=== PATIENT | male | born 1970 | race Caucasian/White ===

== ENCOUNTER 2018-02-25 13:00 | Outpatient (RCR) | payer OTHER, SELFPAY ==
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
--- NOTE | 2018-02-12 11:45 | PTIDS_ITS ---
DATE: 02/12/18 REFERRING PROVIDER: Stephany Kline NP DIAGNOSIS: Shoulder Pain on Left and Weight loss ___X__ Patient did not return for a follow up appointment(s). Patient called to cancel remaining appointment(s). Reason: Return to physician recommended. Patient had achieved an improvement in condition up to their prior level of function. Patient was instructed in a customized home exercise program to continue independently at home. The patient was given the option to call and schedule an appointment any time within a 3-week period if they experience a return of symptoms. Patient did not schedule follow up within this time frame. COMMENTS: Patient started at job and this limited his time for therapy ___X__ Discharge from PT at this time. ___X_ Medicare: Unable to assign G-Codes due to the lack of a formal follow up visit. Patient did not schedule further visits after their last attended appointment and therefore a final assessment could not be performed.
--- NOTE | 2018-02-25 13:28 | PTTR_ITS ---
DATE: 02/25/18 SUBJECTIVE: I am feeling a little bit better. OBJECTIVE: Manual therapy: ([id number]). 267.4#, BMI 44.5, Body fat 35.3%, Muscle mass 29.3%, and Visceral fat 27. Measurements taken by [employer] body analyzer. Patient then placed in supine where he was mobilized with gentle oscillatory lateral distraction and scapular jiggles to decrease muscle tension. He was guided through light stretching of the pectorals and biceps with low load long duration holds. Patient then mobilized through the plane of abduction with use of posterior lateral glide of the humeral head. Patient mobilized through end of range flexion, ER, IR, and abduction with good tolerance. Direct treatment time: 25 minutes of direct patient care.
== END 2018-03-01 23:59 | disposition home or self-care (01) ==
LOC: PT 13:00
PROVIDERS: PCP Nurse Practitioner Family; Referring Provider Nurse Practitioner Adult Health; Visit Provider Nurse Practitioner Adult Health
DX: M19.012 Primary osteoarthritis, left shoulder (principal); M75.42 Impingement syndrome of left shoulder; M89.8X1 Other specified disorders of bone, shoulder
CPT/HCPCS: 97140; 97161

== ENCOUNTER 2018-07-16 19:06 | Emergency (ER) | payer OTHER, MEDICAID, SELFPAY ==
[2018-07-16 19:09] VITALS: BP 140/66; PULSE 95; RESP 20; TEMP 37.4; O2SAT 97
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
[2018-07-16 19:23] VITALS: BP 140/66; PULSE 95; RESP 20; TEMP 37.4; O2SAT 97
== END 2018-07-16 19:20 | disposition home or self-care (01) ==
LOC: ER 19:39
PROVIDERS: Emergency Provider Emergency Medicine; PCP Nurse Practitioner Family
DX: M25.532 Pain in left wrist (principal)
CPT/HCPCS: 99282; L3908

== ENCOUNTER 2018-12-02 14:42 | Outpatient (CLI) | payer OTHER, MEDICAID, SELFPAY ==
--- NOTE | 2018-12-02 14:21 | DI.RAD_ITS ---
SYMPTOMS/DIAGNOSIS: SLAMMED THUMB ON DOOR, INJURY, S69.91XA, ? FX RIGHT THUMB: Three views were obtained. No acute fracture seen. Small osseous bodies are seen associated with the DIP joint, which may be on the basis of old trauma or degenerative change.
== END 2018-12-02 15:02 ==
PROVIDERS: PCP Nurse Practitioner Family; Visit Provider Family Medicine
DX: S69.91XA Unspecified injury of right wrist, hand and finger(s), initial encounter (principal); M21.941 Unspecified acquired deformity of hand, right hand
CPT/HCPCS: 73140

== ENCOUNTER → 2018-12-05 08:54 | Outpatient (BNVA) | payer OTHER, MEDICAID, SELFPAY | PROVIDERS: PCP Nurse Practitioner Family; Referring Provider Nurse Practitioner Family; Visit Provider Orthopaedic Surgery | DX: S60.111A Contusion of right thumb with damage to nail, initial encounter (principal); W23.1XXA Caught, crushed, jammed, or pinched between stationary objects, initial encounter; I10 Essential (primary) hypertension; E11.9 Type 2 diabetes mellitus without complications | CPT/HCPCS: 99204; 99213 ==

== ENCOUNTER 2019-01-19 09:26 | Outpatient (CLI) | payer OTHER, MEDICAID, SELFPAY ==
[2019-01-19 09:49] LABS: Abs Immature Grans 0.02 k/cumm (0.0-0.09); Absolute Basophil Count 0.04 k/cumm (0.0-0.2); Absolute Eosinophil Count 0.24 k/cumm (0.0-0.7); Absolute Lymphocyte Count 1.18 k/cumm (1.2-3.4); Absolute Monocyte Count 0.58 k/cumm (0.11-0.7); Absolute Neutrophil Count 3.77 k/cumm (1.2-6.7); Basophils % 0.7; Eosinophils % 4.1; HGB 14.9 g/dL (13.5-17.5); Immature Grans % 0.3; Lymphocytes % 20.2; Mean Corp. HGB Concentration 35.5 g/dL (32.0-36.0); Mean Corpuscular Hemoglobin 31.2 pg (27.0-33.0); Mean Corpuscular Volume 88.1 fL (80-95); Mean Platelet Volume 10.8 fL (8.0-11.0); Monocytes % 9.9; Neutrophils % 64.8; Platelet Count 133 x1000/uL (130-400); RBC 4.77 m/cumm (4.50-6.00); RBC Distribution Width 13.4 % (11.8-14.1); White Blood Cell Count 5.83 k/cumm (4.4-10.8)
[2019-01-19 10:40] LABS: ALT 35 U/L (12-78); AST 21 U/L (15-37); Albumin 3.9 g/dL (3.4-5.0); Alkaline Phosphatase 85 U/L (46-116); Anion Gap 9.7 mmol/L (3-11); BUN 10 mg/dL (7-18); Bilirubin, Total 0.4 mg/dL (0.2-1.0); CO2 28.3 mmol/L (21.0-32.0); CREATININE 0.84 mg/dL (0.70-1.30); Calcium 8.9 mg/dL (8.5-10.1); Calculated LDL 85 mg/dL; Chloride 103 mmol/L (98-107); Cholesterol 160 mg/dL (50-200); Glucose 114 mg/dL (70-100); HDL Cholesterol 38 mg/dL (40-60); Potassium 4.1 mmol/L (3.5-5.1); Sodium 141 mmol/L (136-145); Total Protein 7.1 g/dL (6.4-8.2); Triglyceride 188 mg/dL (30-150)
[2019-01-20 06:38] LABS: Hemoglobin A1C 5.7 % (4.5-6.2)
[2019-01-20 08:03] LABS: COMMENT (LAB VIEW ONLY) 206.51 mg/dL
== END 2019-01-19 09:46 ==
PROVIDERS: PCP Nurse Practitioner Family; Visit Provider Nurse Practitioner Family
DX: E11.8 Type 2 diabetes mellitus with unspecified complications (principal); I10 Essential (primary) hypertension; Z51.81 Encounter for therapeutic drug level monitoring; E78.5 Hyperlipidemia, unspecified
CPT/HCPCS: 36415; 80053; 80061; 83721; 82043; 82570; 83036; 85025

== ENCOUNTER 2019-03-20 15:45 | Outpatient (CLI) | payer OTHER, MEDICAID, SELFPAY ==
[2019-03-24 10:43] LABS: PSA, Screening 0.2 ng/ml (0-3.5)
== END 2019-03-20 16:05 ==
LOC: LBN 15:49 → LBO 15:58
PROVIDERS: PCP Nurse Practitioner Family; Visit Provider Nurse Practitioner Family
DX: N40.0 Benign prostatic hyperplasia without lower urinary tract symptoms (principal); R35.0 Frequency of micturition; Z12.5 Encounter for screening for malignant neoplasm of prostate
CPT/HCPCS: 36415; 84153

== ENCOUNTER 2019-11-01 16:53 | Emergency (ER) | payer OTHER, MEDICAID, SELFPAY ==
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
[2019-11-01 16:55] VITALS: BP 138/74; PULSE 86; RESP 16; TEMP 36.7; O2SAT 97
[2019-11-01] MEDS: Lidocaine 1% Multi-Dose 50 ML VIAL (17:12)
[2019-11-01] MEDS: Ibuprofen 600 MG TAB PO (17:53)
== END 2019-11-01 17:55 | disposition home or self-care (01) ==
PROVIDERS: Emergency Provider Physician Assistant; PCP Nurse Practitioner Family
DX: S61.210A Laceration without foreign body of right index finger without damage to nail, initial encounter (principal); W26.8XXA Contact with other sharp object(s), not elsewhere classified, initial encounter; E11.9 Type 2 diabetes mellitus without complications; Z79.84 Long term (current) use of oral hypoglycemic drugs; I10 Essential (primary) hypertension
CPT/HCPCS: 12001

== ENCOUNTER 2019-11-17 13:17 | Outpatient (REF) | payer OTHER, MEDICAID, SELFPAY ==
[2019-11-18 10:22] LABS: Abs Immature Grans 0.02 k/cumm (0.0-0.09); Absolute Basophil Count 0.03 k/cumm (0.0-0.2); Absolute Monocyte Count 0.57 k/cumm (0.11-0.7); Basophils % 0.5; Eosinophils % 3.6; HCT 42.4 % (40.0-50.0); HGB 14.5 g/dL (13.5-17.5); Immature Grans % 0.4 %; Lymphocytes % 21.7; Mean Corp. HGB Concentration 34.2 g/dL (32.0-36.0); Mean Corpuscular Hemoglobin 30.5 pg (27.0-33.0); Mean Corpuscular Volume 89.1 fL (80-95); Mean Platelet Volume 12.5 fL (8.0-11.0); Monocytes % 10.3; Neutrophils % 63.5; Platelet Count 116 x1000/uL (130-400); RBC 4.76 m/cumm (4.50-6.00); RBC Distribution Width 13.2 % (11.8-14.1); White Blood Cell Count 5.52 k/cumm (4.4-10.8)
[2019-11-18 10:39] LABS: ALT 33 U/L (16-63); AST 19 U/L (15-37); Albumin 3.9 g/dL (3.4-5.0); Alkaline Phosphatase 112 U/L (46-116); BUN 11 mg/dL (7-18); Bilirubin, Total 0.2 mg/dL (0.2-1.0); Calcium 8.5 mg/dL (8.5-10.1); Calculated LDL 79 mg/dL (<100); Chloride 102 mmol/L (98-107); Cholesterol 166 mg/dL (<200); Glucose 123 mg/dL (74-106); HDL Cholesterol 33 mg/dL (40-60); Potassium 3.9 mmol/L (3.5-5.1); Sodium 137 mmol/L (136-145)
[2019-11-18 10:40] LABS: Triglyceride 272 mg/dL (<150)
[2019-11-18 10:52] LABS: COMMENT (LAB VIEW ONLY) 65.93 mg/dL; Microalb ug/mg Crea 21.7 ug/mg Cr
== END 2019-11-17 13:37 ==
LOC: LBN 13:17
PROVIDERS: PCP Nurse Practitioner Family; Visit Provider Nurse Practitioner Family
DX: E11.9 Type 2 diabetes mellitus without complications (principal); E78.5 Hyperlipidemia, unspecified
CPT/HCPCS: 80053; 80061; 82043; 82570; 85025

== ENCOUNTER 2020-09-22 10:39 | Outpatient (CLI) | payer MEDICARE, MEDICAID, SELFPAY ==
--- NOTE | 2020-09-22 09:30 | DI.RAD_ITS ---
EXAM: XR KNEE LT 3V AP,LAT,ANIKA CLINICAL HISTORY: LT KNEE PAIN, M25.562, STIFFNESS, M25.662, DECREASED ROM LT KNEE. TECHNIQUE: 2D digital imaging was performed. COMPARISON: No exams were available for comparison FINDINGS: There is no evidence of fracture nor prominent no joint effusion. No degenerative change narrowing. No osteophytes. Bone density is normal. No osseous lesions. No obvious osteochondral defects. IMPRESSION: No significant radiograph findings on these three views of the left knee. DATA REPOSITORY: RADIATION DOSE DELIVERED:
--- NOTE | 2020-09-22 09:30 | DI.RAD_ITS ---
EXAM: XR HIP LT COMPLETE AP PELVIS CLINICAL HISTORY: DECREASED ROM LT HIP, STIFFNESS, M25.562, LT GROIN PAIN, CHRONIC PAIN,. TECHNIQUE: 2D digital imaging was performed. COMPARISON: CR LUMBAR SPINE COMPLETE from 07/30/2015 FINDINGS: There is no evidence of pelvic nor hip fracture. However, there are degenerative changes in the hips . There is advanced disc space narrowing superior aspect of the left hip. Also marginal osteophytes in the left femoral head. In the opposite-right hip there are degenerative subarticular cysts in the superior acetabulum noted. Less joint space narrowing. No ominous osseous lesions. Sacroiliac joints appear unremarkable as does the symphysis pubis. IMPRESSION: Degenerative changes in the hips and as described above, more prominent in the left hip. DATA REPOSITORY: RADIATION DOSE DELIVERED:
== END 2020-09-22 10:59 ==
PROVIDERS: PCP Nurse Practitioner Family; Visit Provider Nurse Practitioner Adult Health
DX: M25.562 Pain in left knee (principal); M25.662 Stiffness of left knee, not elsewhere classified; M25.552 Pain in left hip; M25.652 Stiffness of left hip, not elsewhere classified; G89.29 Other chronic pain; M16.12 Unilateral primary osteoarthritis, left hip
CPT/HCPCS: 73562; 73502

== ENCOUNTER 2020-11-02 03:02 | Outpatient (CLI) | payer OTHER, MEDICAID, SELFPAY ==
--- NOTE | 2020-11-02 13:00 | NS.NUTBLAN_ITS ---
ASSESSMENT: 50 y/o male w/ hx DM2 and obesity. He presents with referral for management of both issues. On metformin 1000mg BID. Hx desirable weight loss since 2017 ( -134 lbs.) using principles of Keto diet under the guidance of PharmSerge Pruett and primary care provider. Shelly he weighs 283.2lbs. He was walking regularly for exercise but stated that he is going to be scheduling hip surgery soon and has stopped walking r/t pain. Random fingerstick at this encounter revealed 139 mg/dl with diet recall of CHO rich breakfast of oatmeal, honey and PB. He is endentulous and prefers softer foods. He had no lunch prior to this encounter and stated that he normally does not eat lurch. He and his vcook at home. Drinks mostly black coffee with an occasional Pepsi. Stated that he is computer illiterate. He reports 9 months of consecutive sobriety with AA and support of a sponsor in the program. Works at [employer] and stated that his job is quite physical with walking and lifting. He had a recent visit with PCP. Recent labs unavailable.He is a smoker and is going to look into cessation in the coming months. INTERVENTION: Recommended he contact PCP for Rx of new glucometer and test strips. Recommended he record all meals, snacks and beverages for 7 days and test FBG and 1 alternating meal ~ 2hrs postprandial X 1 week. Reviewed CHO daily intake and provided two diabetic recipe books for him to use at home to help with CHO intake and food choices. set a weight loss goal of 7% ( 20lbs) and recommended he eat only recipes from the literature provided and keep CHO intake to <30g per meal. Provided food record forms and BG record forms. reiterated his past success at weight loss goals .Explained relationship b/t smoking and DM complications. MONITOR/EVAL: Darryl will return in 30 days for re-weigh and evaluation. We will then review BG numbers and look for trends based on food choices. He has a good working knowledge of what to do to lose weight and control BG with diet and a successful track record. He seems motivated to continue to focus on new goals moving forward. Time Spent Face to Face: 3 units/45 minutes
== END 2020-11-02 03:03 | disposition home or self-care (01) ==
LOC: DS 03:02
PROVIDERS: PCP Nurse Practitioner Family; Visit Provider Dietitian, Registered
DX: E11.9 Type 2 diabetes mellitus without complications (principal); E66.9 Obesity, unspecified; Z71.3 Dietary counseling and surveillance; Z79.84 Long term (current) use of oral hypoglycemic drugs
CPT/HCPCS: 97802

== ENCOUNTER 2020-12-17 10:17 | Outpatient (CLI) | payer OTHER, MEDICAID, SELFPAY ==
--- NOTE | 2020-12-17 10:15 | RT.EKG_ITS ---
APPROVED REPORT Exam: Resting ECG Reason for Exam: pre-op exam Patient Location: O HR:67 bpm ECG Measurements Heart Rate 67 AXIS IA 179 P -24 QRSd 102 QRS 7 QT 380 T 30 QTc 401 Conclusion Sinus rhythm...normal P axis, V-rate 60- 99 Normal Electrocardiogram
== END 2020-12-17 10:18 | disposition home or self-care (01) ==
LOC: DI.KIM 10:19
PROVIDERS: PCP Nurse Practitioner Family; Visit Provider Nurse Practitioner Family
DX: Z01.810 Encounter for preprocedural cardiovascular examination (principal)
CPT/HCPCS: 93010

== ENCOUNTER 2021-05-05 03:06 | Outpatient (CLI) | payer OTHER, MEDICAID, SELFPAY ==
--- NOTE | 2021-05-05 13:00 | NS.NUTBLAN_ITS ---
Assessment: Darryl returns for nutritional counseling for weight management and medical nutrition therapy for diabetes. He reports that he has met his action plans from our last visit by 50%. He has cut down on his cereal. He is eating very low calorie, low carbohydrate bread, and he has changed his snacks to mostly cottage cheese and fruit. He does have 2 cups of pasta or rice at dinner and he has 24 oz. of 2% milk with strawberry syrup in it. Darryl reports that he has not started increasing his physical activity and he has not yet joined a gym but plans to look at one that is covered by his health insurance. Today he is 316.2 lbs which is 0.7 lbs less than three weeks ago. (He is 63) Nutrition Diagnosis: Class 3 obesity related to excess energy intake and physical inactivity as evidenced by BMI of 53 kg/m2. Intervention: Acknowledged his progress with some of his dietary changes. Suggested that he eliminate the strawberry syrup from his milk. He agreed to trial that plan. Also suggested that he cut his intake of starches in half. Encouraged him to start with any increase in movement such as 15 minutes three days per week. He stated he is motivated. At our last visit, Darryl asked for some keto recipes. I provided him with many. He reported that he was looking forward to trying them. Monitoring and Evaluation: Will continue to monitor weight and behavior changes. Will evaluate his progress with his action plans and will help Darryl adjust them accordingly. Darryl will return for follow up next month. Thank you for continuing to allow me to participate in the care of your patient.
== END 2021-05-05 03:07 | disposition home or self-care (01) ==
PROVIDERS: PCP Nurse Practitioner Family; Visit Provider Dietitian, Registered
DX: E11.9 Type 2 diabetes mellitus without complications (principal); E66.01 Morbid (severe) obesity due to excess calories; Z71.3 Dietary counseling and surveillance
CPT/HCPCS: 97803

== ENCOUNTER 2021-05-20 13:15 | Inpatient (IN) | payer OTHER, MEDICAID, SELFPAY ==
[2021-05-20] VITALS (55 sets, daily range): BP systolic 103–165; BP diastolic 65–84; PULSE 77–98; RESP 13–36; TEMP 36–37.3; O2SAT 92–100
--- NOTE | 2021-05-20 13:15 | RT.EKG_ITS ---
APPROVED REPORT Exam: Resting ECG Reason for Exam: CARY, ANNETTA Patient Location: E HR:79 bpm ECG Measurements Heart Rate 79 AXIS IN 164 P 13 QRSd 100 QRS -17 QT 377 T 23 QTc 431 Conclusion Sinus rhythm...normal P axis, V-rate 60- 99
[2021-05-20 13:40] LABS: Source Nasal/Nares
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
[2021-05-20 13:47] LABS: Abs Immature Grans 0.04 10^3/uL (0.0-0.06); Absolute Basophil Count 0.06 10^3/uL (0.0-0.2); Absolute Eosinophil Count 0.12 10^3/uL (0.0-0.7); Absolute Lymphocyte Count 0.88 10^3/uL (1.2-3.4); Absolute Monocyte Count 0.51 10^3/uL (0.1-0.8); Basophils % 0.7; Eosinophils % 1.4; HGB 15.5 g/dL (13.5-17.5); Immature Grans % 0.5; Lymphocytes % 10.6; MCH 29.1 pg (27.0-33.0); MCHC 33.7 % (32.0-36.0); MCV 86.5 fL (80-95); MPV 11.1 fL (8.0-11.0); Monocytes % 6.1; Neutrophils % 80.7; Nucleated RBC 0 %; Platelet Count 160 10^3/uL (130-400); RBC 5.32 10^6/uL (4.36-5.78); RDW 13.6 % (11.8-14.1); RDW-SD 42.8 fL; WBC 8.31 10^3/uL (4.4-10.8)
[2021-05-20] MEDS: Aspirin 81 MG CHEW 243 MG CH (13:54)
[2021-05-20 14:32] LABS: COVID-19 PCR Negative (Negative)
[2021-05-20 14:39] LABS: ALT 73 U/L (16-63); AST 69 U/L (15-37); Albumin 3.2 g/dL (3.4-5.0); Alkaline Phosphatase 203 U/L (46-116); Anion Gap 9.6 mmol/L (3-11); BUN 7 mg/dL (7-18); Bilirubin, Total 0.5 mg/dL (0.2-1.0); CO2 28.4 mmol/L (21.0-32.0); CREATININE 0.8 mg/dL (0.70-1.30); Calcium 9.1 mg/dL (8.5-10.1); Chloride 96 mmol/L (98-107); Glucose 305 mg/dL (74-106); Magnesium 1.5 mg/dL (1.8-2.4); Potassium 4.8 mmol/L (3.5-5.1); Sodium 134 mmol/L (136-145); Total Protein 7.6 g/dL (6.4-8.2)
[2021-05-20 14:40] LABS: Troponin I < 0.05 ng/mL (<0.06)
[2021-05-20 15:10] LABS: Lipase 70 U/L (73-393)
--- NOTE | 2021-05-20 15:30 | DI.CT_ITS ---
Exam(s) CT CHEST PE ABD PELVIS W EXAM: CT CHEST PE ABD PELVIS W CLINICAL HISTORY: Chest Pain, SOB, Rule out PE. TECHNIQUE: Imaging Protocol: Axial CT angiography was performed with multi-slice acquisition and mu lti-planar and/or 3D reconstructions. CONTRAST MATERIAL: Intravenous: Omnipaque 350 Contrast volume:100 ml COMPARISON: No exams were available for comparison FINDINGS: CHEST: Exam is limited by patient body habitus. The pulmonary arteries are suboptimally opacified. Pulmonary Arteries: No central evidence of filling defect to suggest pulmonary emboli. Distal emboli not excluded. Tracheobronchial tree: Patent where visualized. Mediastinum and Manuela: No dominant adenopathy or fluid collection. Pulmonary parenchyma: Expiratory changes. Question of right perihilar infiltrate. Pleura: No effusion or pneumothorax. Heart: The heart is not dilated. coronary artery calcifications are seen. Aorta: Thoracic aorta non-dilated. Bones: Degenerative disc changes. Tubes, Catheters, and Lines: ABDOMEN: Liver: Marked nodularity in decreased attenuation as well as enlargement, consistent with cirrhosis. There is a mass probably superior to the gallbladder measuring roughly 3.8 x 4.4 by 7 cm. The bord ers are ill-defined. Portal vein: Partially occlusive thrombus in the right portal vein. Left portal vein and main mariola l vein free of thrombus. Superior Mesenteric, and Splenic Veins: Unremarkable. Gallbladder and Biliary Tract: No radiodense calculus or dilation. Pancreas: Normal density, no abnormal calcifications or inflammatory process. Spleen: Normal. Adrenals: No masses seen. Kidneys: Normal size, contour and axis. No radiodense stones or obstructive uropathy. No masses seen. Abdominal Aorta: Abdominal portion non-dilated. Bowel: No obstruction or bowel wall thickening. Mild sigmoid diverticulosis. No evidence of diverti culitis. Appendix is unremarkable. Peritoneal Cavity: No ascites, collection or mesenteric inflammatory response. Lymph Nodes: 2.5 centimeter lymph node in the mariola hepatis. Bones: Degenerative changes in the spine. Soft Tissues: Severe rectus diastasis and hernia of the midline abdominal wall above the level of the umbilicus. Loops of small bowel lie directly adjacent to this but are not not definitely extending through the defect. PELVIS: Bladder: Symmetric distention, no gross wall thickening. Reproductive Organs: Unremarkable as visualized. Lymph Nodes: Within normal limits. Bones: Left hip prosthesis. IMPRESSION: 1. Suboptimal opacification of the pulmonary arteries. No evidence of central pulmonary embolism. 2. Markedly cirrhotic liver. 7 centimeter maximal dimension liver mass. Partially occluding thrombu s in the right hepatic vein, likely tumor thrombus. 3. Right perihilar opacity could represent infiltrate however given the liver mass metastatic lesion is not excluded. 4. The findings were called to [facility] of the emergency department. RADIATION DOSE DELIVERED: 2,637.96mGy.cm Total DLP DATA REPOSITORY: All CT scans at this facility are submitted to the National Radiology Data Registry (NRDR) Dose Index Registry (DIR) with the [employer] (ACR). RADIATION OPTIMIZATION: All CT scans at this facility use at least one of these dose optimization te chniques: automated exposure control; mA and/or kV adjustment per patient size (includes targeted exa ms where dose is matched to clinical indication); or iterative reconstruction.
[2021-05-20] MEDS: Omnipaque 350 MG/ML 100 ML BTL IJ (15:45)
[2021-05-20] MEDS: Normal Saline - Diluent 50 ML VIAL IV (15:45)
[2021-05-20] MEDS: Normal Saline Flush 10 ML SYR IVP ×2 (15:46→21:51)
[2021-05-20] MEDS: Ondansetron 4 MG/2 ML VIAL IVP (16:33)
[2021-05-20 16:38] LABS: INR 1.1 (0.9-1.1); PTT Activated 24.5 sec (21.0-27.5); Prothrombin Time 11.2 sec (9.3-11.0)
--- NOTE | 2021-05-20 17:00 | RT.EKG_ITS ---
APPROVED REPORT Exam: Resting ECG Reason for Exam: SOB Patient Location: E HR:89 bpm ECG Measurements Heart Rate 89 AXIS LA 156 P 25 QRSd 95 QRS 6 QT 360 T 4 QTc 439 Conclusion Sinus rhythm...normal P axis, V-rate 60- 99
[2021-05-20 17:43] LABS: Troponin I < 0.05 ng/mL (<0.06)
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
--- NOTE | 2021-05-20 19:07 | W.ED.FU ---
Date of service: 05/20/21 Time of Service: 19:08 Follow Up Plan: 1904: Call received from Hem/Onc fellow, Dr. Weiner she recommends a dedicated liver MRI, if negative then patient would need a liver biopsy via IR. If the MRI is positive there is no need for a biopsy. She also recommends adding onto the labs hepatitis B, hepatitis C and alpha-fetoprotein she also confirms that Lovenox or Heparin is adequate for anticoagulation at this time. Will order the requested labs and discuss with hospitalist.
[2021-05-20] MEDS: MAGNESIUM SULFATE 2 GM/50 ML BAG IVPB (21:46)
[2021-05-20] MEDS: MORPHine 4 MG/ML SYR IVP (21:47)
[2021-05-20] MEDS: Normal Saline 500 ML 30 ML IV (21:47)
[2021-05-20] MEDS: Atorvastatin 40 MG TAB PO (21:48)
[2021-05-20] MEDS: rOPINIRole 0.5 MG TAB 1.5 MG PO (21:48)
[2021-05-20] MEDS: Insulin Glargine 300 UNITS/3 ML PEN 20 UNITS SC (22:15)
[2021-05-20] MEDS: Diclofenac 1% Gel 100 GM TUBE TP (22:28)
[2021-05-21] VITALS (9 sets, daily range): BP systolic 126–139; BP diastolic 81–89; PULSE 69–92; RESP 18–20; TEMP 36.2–37.1; O2SAT 93–98
[2021-05-21] MEDS: MORPHine 4 MG/ML SYR IVP ×6 (07:40→20:23)
[2021-05-21] MEDS: Normal Saline Flush 10 ML SYR IVP ×6 (07:46→20:27)
[2021-05-21] MEDS: Tamsulosin 0.4 MG CAPCR 0.8 MG PO (07:47)
[2021-05-21] MEDS: Gabapentin 600 MG TAB 1200 MG PO ×2 (07:47→20:26)
[2021-05-21] MEDS: Oxybutynin 5 MG TAB PO ×2 (07:47→20:26)
[2021-05-21] MEDS: Lisinopril 5 MG TAB 2.5 MG PO (07:48)
[2021-05-21] MEDS: Multivitamin TAB 1 TAB PO (07:48)
[2021-05-21] MEDS: Pantoprazole 40 MG TABCR PO (07:48)
[2021-05-21] MEDS: Loratidine 10 MG TAB PO (07:48)
[2021-05-21] MEDS: Enoxaparin 100 MG/ML SYR SC (07:49)
[2021-05-21] MEDS: Topiramate 25 MG TAB PO ×2 (08:25→20:27)
[2021-05-21] MEDS: Fluticasone NASAL SPRAY 16 GM BTL NS (08:25)
[2021-05-21] MEDS: Enoxaparin 40 MG/0.4 ML SYR SC (08:25)
[2021-05-21] MEDS: carBAMazepine 200 MG TAB PO ×2 (08:25→20:26)
[2021-05-21] MEDS: Insulin Aspart 300 UNITS/3 ML PEN SC ×3 (08:26→17:21)
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
--- NOTE | 2021-05-21 13:12 | PGE_ITS ---
Date of Service Date of service: 05/21/21 Time of Service: 13:12 Assessment and Plan Assessment and plan (1) Portal vein thrombosis: Status: Acute Assessment and plan: Associated with new liver mass that is likely malignant. This is likely an acute clot and now treated with Lovenox for AC, though can consider a NOAC (if oncology agrees given likelyhood of cancer). Reassured by imaging not suggestive of chronic portal HTN; veins not seen on CT, no splenomegaly. The platelets >150 also suggest no portal HTN Will need endoscopy as outpt. (2) Liver mass: Status: Acute Assessment and plan: As above hepatocellular carcinoma highest on differential. MRI and AFP per [facility] oncology input. (3) Cirrhosis: Status: Acute Assessment and plan: This was not previously in the record, though the patient does state he was told 20 years ago he had cirrhosis. That said, his labs have not suggested this over that period of time. His current labs and imaging are consistent with Ocmvj-Surgnwxe-Nilv Class A compensated cirrhosis. Hepatitis B and C screens have been ordered. He also has a normal ferritin on record. He is clearly at risk of alcohol liver disease and SHEARER given BMI and type 2 DM. (4) Type 2 diabetes mellitus: Status: Chronic Assessment and plan: A1c 7.8 in April 2021. Will hold metformin give CT scans. Cont basal insulin and sliding scale while inpatient. (5) Tobacco use disorder: Status: Acute Assessment and plan: He states he would like to quit. Patches while inpatient. (6) Essential hypertension: Status: Chronic Assessment and plan: BP well controlled, continue outpatient treatment (7) Alcohol use disorder: Status: Inactive Assessment and plan: In remission x 15 mo, encouraged. (8) Gastroesophageal reflux disease: Status: Chronic Assessment and plan: H/o GERD and Barretts, but improved off therapy likely do to weight loss and not drinking. Will treat with PPI now given bleeding risk. (9) Mood disorder: Status: Chronic Assessment and plan: There is a concern of using carbamazepine with liver disease, but not likely the cause of his cirrhosis so will continue to prevent decompensation from a mental health perspective. (10) Obstructive sleep apnea: Status: Chronic Assessment and plan: home CPAP (11) DVT prophylaxis: Status: Acute Assessment and plan: on therapeutic LMWH (12) Discharge planning issues: Status: Acute Assessment and plan: Admitted to anticoagulate given bleeding risk, and treat pain. Has tele given initial cardiac concern and low magnesium, which we are replacing. He is full code. Subjective Subjective Patient reports: still having pain (RUQ) and afebrile; denies nausea, vomiting and shortness of breath Exam Const General: cooperative and no acute distress Nutritional Appearance: obese Orientation: alert and oriented x3 HENMT Head: normal to inspection and atraumatic Eyes General: appearance normal, both eyes and all related structures Sclera: sclerae normal Neck Neck: full ROM and no JVD Resp Effort & Inspection: normal respiratory effort Auscultation: clear to auscultation bilaterally Cardio Rate: regular rate Rhythm: regular rhythm Heart Sounds: S1 normal and S2 normal GI Inspection: obesity Palpation: soft and tender in the RUQ; with no rebound tenderness Skin General skin exam: no rashes or lesions noted Extrem General: no calf tenderness and edema Laterality: bilateral (trace) Objective Last Vital Signs Temp 37.1 C 05/21/21 11:33 Pulse 83 05/21/21 11:33 Resp 19 05/21/21 11:33 BP 137/89 05/21/21 11:33 Pulse Ox 95 05/21/21 11:33 Laboratory Results - last 24 hr 05/20/21 05/20/21 05/20/21 13:30 13:38 13:38 WBC 8.31 RBC 5.32 Hgb 15.5 Hct 46.0 MCV 86.5 MCH 29.1 MCHC 33.7 RDW 13.6 Plt Count 160 MPV 11.1 H Immature Gran % 0.5 Neutrophils % 80.7 Lymphocytes % 10.6 Monocytes % 6.1 Eosinophils % 1.4 Basophils % 0.7 Nucleated RBC % 0 Absolute Neutrophils 6.70 Absolute Lymphocytes 0.88 L Absolute Monocytes 0.51 Absolute Eosinophils 0.12 Absolute Basophils 0.06 PT INR APTT Sodium Cancelled Potassium Cancelled Chloride Cancelled Carbon Dioxide Cancelled Anion Gap Cancelled BUN Cancelled Creatinine Cancelled Estimated GFR/1.73 m2 Cancelled Glucose Cancelled Calcium Cancelled Magnesium Cancelled Total Bilirubin Cancelled AST Cancelled ALT Cancelled Alkaline Phosphatase Cancelled Troponin I Cancelled Total Protein Cancelled Albumin Cancelled Lipase COVID-19 Source Nasal/Nares SARS-CoV-2 (PCR) Negative 05/20/21 05/20/21 05/20/21 14:04 14:04 16:19 WBC RBC Hgb Hct MCV MCH MCHC RDW Plt Count MPV Immature Gran % Neutrophils % Lymphocytes % Monocytes % Eosinophils % Basophils % Nucleated RBC % Absolute Neutrophils Absolute Lymphocytes Absolute Monocytes Absolute Eosinophils Absolute Basophils PT 11.2 H INR 1.1 APTT 24.5 Sodium 134 L Potassium 4.8 Chloride 96 L Carbon Dioxide 28.4 Anion Gap 9.6 BUN 7 Creatinine 0.8 Estimated GFR/1.73 m2 >= 60.00 Glucose 305 H Calcium 9.1 Magnesium 1.5 L Total Bilirubin 0.5 AST 69 H ALT 73 H Alkaline Phosphatase 203 H Troponin I < 0.05 Total Protein 7.6 Albumin 3.2 L Lipase 70 COVID-19 Source SARS-CoV-2 (PCR) 05/20/21 05/21/21 17:05 06:22 WBC RBC Hgb Hct MCV MCH MCHC RDW Plt Count MPV Immature Gran % Neutrophils % Lymphocytes % Monocytes % Eosinophils % Basophils % Nucleated RBC % Absolute Neutrophils Absolute Lymphocytes Absolute Monocytes Absolute Eosinophils Absolute Basophils PT INR APTT Sodium Potassium Chloride Carbon Dioxide Anion Gap BUN Creatinine Estimated GFR/1.73 m2 Glucose Calcium Magnesium 2.0 Total Bilirubin AST ALT Alkaline Phosphatase Troponin I < 0.05 Total Protein Albumin Lipase COVID-19 Source SARS-CoV-2 (PCR)
[2021-05-21] MEDS: Atorvastatin 40 MG TAB PO (20:27)
[2021-05-21] MEDS: rOPINIRole 0.5 MG TAB 1.5 MG PO (21:44)
[2021-05-21] MEDS: Insulin Glargine 300 UNITS/3 ML PEN 20 UNITS SC (21:47)
[2021-05-21] MEDS: Diclofenac 1% Gel 100 GM TUBE TP (21:55)
[2021-05-22] VITALS (11 sets, daily range): BP systolic 124–135; BP diastolic 70–89; PULSE 71–100; RESP 18–22; TEMP 36.3–36.8; O2SAT 95–97
[2021-05-22] MEDS: oxyCODONE 5 MG TAB PO ×5 (03:24→21:11)
[2021-05-22 07:04] LABS: HCT 40.9 % (40.0-50.0); HGB 13.3 g/dL (13.5-17.5); MCH 28.9 pg (27.0-33.0); MCHC 32.5 % (32.0-36.0); MCV 88.7 fL (80-95); Platelet Count 126 10^3/uL (130-400); RBC 4.61 10^6/uL (4.36-5.78); RDW 13.6 % (11.8-14.1); RDW-SD 44.1 fL; WBC 5.15 10^3/uL (4.4-10.8)
[2021-05-22 07:24] LABS: ALT 52 U/L (16-63); AST 41 U/L (15-37); Albumin 2.9 g/dL (3.4-5.0); Alkaline Phosphatase 145 U/L (46-116); Anion Gap 9.7 mmol/L (3-11); BUN 11 mg/dL (7-18); Bilirubin, Total 0.5 mg/dL (0.2-1.0); CO2 27.3 mmol/L (21.0-32.0); CREATININE 0.6 mg/dL (0.70-1.30); Calcium 8.7 mg/dL (8.5-10.1); Chloride 99 mmol/L (98-107); Glucose 271 mg/dL (74-106); Potassium 4.1 mmol/L (3.5-5.1); Sodium 136 mmol/L (136-145); Total Protein 7.2 g/dL (6.4-8.2)
[2021-05-22] MEDS: Fluticasone NASAL SPRAY 16 GM BTL NS (08:15)
[2021-05-22] MEDS: Gabapentin 600 MG TAB 1200 MG PO ×2 (08:16→19:48)
[2021-05-22] MEDS: Tamsulosin 0.4 MG CAPCR 0.8 MG PO (08:16)
[2021-05-22] MEDS: Topiramate 25 MG TAB PO ×2 (08:16→19:48)
[2021-05-22] MEDS: Oxybutynin 5 MG TAB PO ×2 (08:16→19:47)
[2021-05-22] MEDS: carBAMazepine 200 MG TAB PO ×2 (08:17→19:48)
[2021-05-22] MEDS: Pantoprazole 40 MG TABCR PO (08:17)
[2021-05-22] MEDS: Multivitamin TAB 1 TAB PO (08:17)
[2021-05-22] MEDS: Loratidine 10 MG TAB PO (08:17)
[2021-05-22] MEDS: Lisinopril 5 MG TAB 2.5 MG PO (08:18)
[2021-05-22] MEDS: Insulin Aspart 300 UNITS/3 ML PEN SC ×3 (08:21→17:25)
--- NOTE | 2021-05-22 10:12 | PGE_ITS ---
Date of Service Date of service: 05/22/21 Time of Service: 10:12 Assessment and Plan Assessment and plan (1) Portal vein thrombosis: Status: Acute Assessment and plan: Associated with new liver mass that is likely malignant. This is likely an acute clot and now treated with Lovenox for AC, though can consider a NOAC (if oncology agrees given likelyhood of cancer). Reassured by imaging not suggestive of chronic portal HTN; veins not seen on CT, no splenomegaly. The platelets >150 also suggest no portal HTN Will need endoscopy as outpt. (2) Liver mass: Status: Acute Assessment and plan: As above hepatocellular carcinoma highest on differential. MRI, planned for tomorrow, and AFP (pending) per [facility] oncology input. (3) Cirrhosis: Status: Acute Assessment and plan: This was not previously in the record, though the patient does state he was told 20 years ago he had cirrhosis. That said, his labs have not suggested this over that period of time. His current labs and imaging are consistent with Zhetk-Nkpfwyhj-Gbxx Class A compensated cirrhosis. Hepatitis B and C screens have been ordered. He also has a normal ferritin on record. He is clearly at risk of alcohol liver disease and SHEARER given BMI and type 2 DM. (4) Type 2 diabetes mellitus: Status: Chronic Assessment and plan: A1c 7.8 in April 2021. Will hold metformin give CT scans. Cont basal insulin and sliding scale while inpatient; adjusting d/t elevated glucose levels. (5) Tobacco use disorder: Status: Acute Assessment and plan: He states he would like to quit. Patches while inpatient. (6) Essential hypertension: Status: Chronic Assessment and plan: BP well controlled, continue outpatient treatment (7) Alcohol use disorder: Status: Inactive Assessment and plan: In remission x 15 mo, encouraged. (8) Gastroesophageal reflux disease: Status: Chronic Assessment and plan: H/o GERD and Barretts, but improved off therapy likely do to weight loss and not drinking. Will treat with PPI now given bleeding risk. (9) Mood disorder: Status: Chronic Assessment and plan: There is a concern of using carbamazepine with liver disease, but not likely the cause of his cirrhosis so will continue to prevent decompensation from a mental health perspective. (10) Obstructive sleep apnea: Status: Chronic Assessment and plan: home CPAP (11) DVT prophylaxis: Status: Acute Assessment and plan: on therapeutic LMWH (12) Discharge planning issues: Status: Acute Assessment and plan: Admitted to anticoagulate given bleeding risk, and treat pain. Has tele given initial cardiac concern and low magnesium, which we are replacing. He is full code. (13) Constipation: Status: Acute Assessment and plan: He states his normal routine is a BM every 3 days. Feels bloated and is passing flatus. MIralax BID. Senna now and then BID PRN. Ambulate. Subjective Subjective Patient reports: pain is less (RUQ) and afebrile; denies bowel movement (Typically has BM Q3days. Passing flatus), nausea, vomiting and shortness of breath Exam Const General: cooperative and no acute distress Nutritional Appearance: obese Orientation: alert and oriented x3 HENMT Head: normal to inspection and atraumatic Eyes General: appearance normal, both eyes and all related structures Sclera: sclerae normal Neck Neck: full ROM and no JVD Resp Effort & Inspection: normal respiratory effort Auscultation: clear to auscultation bilaterally Cardio Rate: regular rate Rhythm: regular rhythm Heart Sounds: S1 normal and S2 normal GI Inspection: obesity Palpation: soft and nontender Skin General skin exam: no rashes or lesions noted Extrem General: no calf tenderness and edema Laterality: bilateral (trace) Objective Last Vital Signs Temp 36.6 C 05/22/21 07:00 Pulse 82 05/22/21 07:00 Resp 22 05/22/21 07:00 BP 135/86 05/22/21 07:00 Pulse Ox 97 05/22/21 07:00 Laboratory Results - last 24 hr 05/22/21 05/22/21 06:15 06:15 WBC 5.15 RBC 4.61 Hgb 13.3 L D Hct 40.9 MCV 88.7 MCH 28.9 MCHC 32.5 RDW 13.6 Plt Count 126 L MPV 11.0 Sodium 136 Potassium 4.1 Chloride 99 Carbon Dioxide 27.3 Anion Gap 9.7 BUN 11 Creatinine 0.6 L Estimated GFR/1.73 m2 >= 60.00 Glucose 271 H Calcium 8.7 Total Bilirubin 0.5 AST 41 H ALT 52 Alkaline Phosphatase 145 H Total Protein 7.2 Albumin 2.9 L
[2021-05-22] MEDS: Senna TAB 1 TAB PO (10:40)
[2021-05-22] MEDS: Polyethylene Glycol 3350 17 GM PACKET PO ×2 (10:41→19:48)
--- NOTE | 2021-05-22 11:38 | PHA.REVIEW ---
Pharmacy Admission Review - Admission Clinical Review (Last Reviewed 05/20/21 @ 20:38 by Darius Licona) Constipation (Acute) Discharge planning issues (Acute) DVT prophylaxis (Acute) Cirrhosis (Acute) Portal vein thrombosis (Acute) Liver mass (Acute) Tobacco use disorder (Acute) No Known Allergies Allergy (Verified 05/20/21 13:29) Resuscitation Status Full Code Height 5 ft 4.17 in Weight 142.7 kg - Renal Dosing Renal Dosing: BUN 11 mg/dL (7-18) 05/22/21 06:15 Creatinine 0.6 mg/dL (0.70-1.30) L 05/22/21 06:15 Medications needing adjustments: Reviewed (CRCL ~90ML/MIN) - Anticoagulation Anticoagulation: Hgb 13.3 g/dL (13.5-17.5) L D 05/22/21 06:15 Hct 40.9 % (40.0-50.0) 05/22/21 06:15 Plt Count 126 10^3/uL (130-400) L 05/22/21 06:15 INR 1.1 (0.9-1.1) 05/20/21 16:19 Creatinine 0.6 mg/dL (0.70-1.30) L 05/22/21 06:15 DVT Prophylaxis: N/A Therapeutic Anticoagulation: Reviewed Medications: Enoxaparin - Relevant Labs Sodium 136 mmol/L (136-145) 05/22/21 06:15 Potassium 4.1 mmol/L (3.5-5.1) 05/22/21 06:15 Chloride 99 mmol/L (98-107) 05/22/21 06:15 Magnesium 2.0 mg/dL (1.8-2.4) 05/21/21 06:22 Electrolytes, C-Reactive P, ESR: Reviewed - DM Control DM Control: Glucose 271 mg/dL (74-106) H 05/22/21 06:15 Finger Stick Blood Glucose 357 Finger Stick Blood Glucose 357 Finger Stick Blood Glucose 304 Finger Stick Blood Glucose 304 Finger Stick Blood Glucose 304 Insulin Dosing: Reviewed (SS ASPART AND GLARGINE STEFANI(INCREASED DOSE TODAY)) - Heart Failure/PR Heart Failure/PR: Troponin I < 0.05 ng/mL (<0.06) 05/20/21 17:05 - BP Control BP Control: Blood Pressure 132/70 Blood Pressure 135/86 Blood Pressure 130/87 If elevated: N/A (439) - Qtc Review If Elevated: N/A (439) - IV to PO Switch IV Medications: Reviewed (IV PAIN MEDS) - Home Meds Home Med List reviewed: Reviewed (HOLDING METFORMIN D/T IMAGING TO BE DONE) - Current meds Current Medication Order Review: Reviewed - Comments Comments/Follow Ups: NEW LIVER MASS. MRI TOMORROW. WATCH PLT
[2021-05-22] MEDS: Nicotine 14 MG/24 HR PATCH TD (13:29)
[2021-05-22] MEDS: Diclofenac 1% Gel 100 GM TUBE TP ×2 (14:28→19:48)
[2021-05-22] MEDS: Atorvastatin 40 MG TAB PO (19:48)
[2021-05-22] MEDS: Insulin Glargine 300 UNITS/3 ML PEN 30 UNITS SC (21:10)
[2021-05-22] MEDS: Melatonin 3 MG TAB 9 MG PO (21:11)
[2021-05-22] MEDS: rOPINIRole 0.5 MG TAB 1.5 MG PO (21:11)
--- NOTE | 2021-05-23 | DI.MRI_ITS ---
Exam(s) MR ABDOMEN WO/W EXAM: MR ABDOMEN WO/W CLINICAL HISTORY: liver mass on CT concerning for HCC TECHNIQUE: Multiplanar multisequence MRI of the Abdomen was performed. COMPARISON: CT CT CHEST PE ABD PELVIS W from 05/20/2021 FINDINGS: Exam is limited by the patient's body habitus and respiratory motion.. Lung bases: Trace trace bilateral pleural effusions and adjacent atelectasis. Liver: Enlarged. Nodular contour and regenerative nodules.. Geographic fatty infiltration with spar ing of the superior portion of the right lobe.. Trace amount surrounding ascites. Mass right lobe a djacent to gallbladder as seen on CT. Measuring roughly 3.8 cm by 7 cm. Tumor thrombus visible in r ight portal vein. Pancreas: Unremarkable. Gallbladder and Bile Ducts: Unremarkable. Adrenals: Unremarkable. Kidneys: Unremarkable. Spleen: Enlarged, 20 cm in length. Aorta: Unremarkable. Soft Tissues: Unremarkable. Bone: Unremarkable. Lymph Nodes: Unremarkable. IMPRESSION: Mass seen on CT has a suspicious appearance on MRI with presence of tumor thrombus, suspicious for he patocellular carcinoma. DATA REPOSITORY:
[2021-05-23 03:27] VITALS: BP 125/85; PULSE 85; RESP 20; TEMP 36.8; O2SAT 97
[2021-05-23] MEDS: Acetaminophen 500 MG TAB 1000 MG PO (06:04)
[2021-05-23] MEDS: oxyCODONE 5 MG TAB PO (06:04)
[2021-05-23 07:09] VITALS: PULSE 83
[2021-05-23 07:41] LABS: ALT 56 U/L (16-63); AST 62 U/L (15-37); Albumin 3.1 g/dL (3.4-5.0); Alkaline Phosphatase 150 U/L (46-116); Anion Gap 9.3 mmol/L (3-11); BUN 11 mg/dL (7-18); Bilirubin, Total 0.6 mg/dL (0.2-1.0); CO2 25.7 mmol/L (21.0-32.0); CREATININE 0.7 mg/dL (0.70-1.30); Calcium 9.1 mg/dL (8.5-10.1); Chloride 98 mmol/L (98-107); Glucose 283 mg/dL (74-106); Magnesium 1.7 mg/dL (1.8-2.4); Potassium 4.2 mmol/L (3.5-5.1); Sodium 133 mmol/L (136-145); Total Protein 7.6 g/dL (6.4-8.2)
[2021-05-23] MEDS: Polyethylene Glycol 3350 17 GM PACKET PO (07:46)
[2021-05-23] MEDS: Oxybutynin 5 MG TAB PO (07:46)
[2021-05-23] MEDS: Tamsulosin 0.4 MG CAPCR 0.8 MG PO (07:46)
[2021-05-23] MEDS: carBAMazepine 200 MG TAB PO (07:47)
[2021-05-23] MEDS: Multivitamin TAB 1 TAB PO (07:47)
[2021-05-23] MEDS: Loratidine 10 MG TAB PO (07:47)
[2021-05-23] MEDS: Pantoprazole 40 MG TABCR PO (07:47)
[2021-05-23] MEDS: Topiramate 25 MG TAB PO (07:47)
[2021-05-23] MEDS: Lisinopril 5 MG TAB 2.5 MG PO (07:48)
[2021-05-23 08:04] VITALS: BP 123/89; PULSE 83; RESP 18; TEMP 36.6; O2SAT 95
[2021-05-23] MEDS: Insulin Aspart 300 UNITS/3 ML PEN SC ×2 (08:24→12:34)
[2021-05-23] MEDS: Fluticasone NASAL SPRAY 16 GM BTL NS (08:25)
--- NOTE | 2021-05-23 08:28 | PDOC.CMPRO ---
- If Service Date Differs Date of service: 05/23/21 Time of Service: 08:29 Care Management Progress Note S/O:Darryl was sitting up in a chair when CM met with him. When asked how he was feeling he stated that he is really scared. He verbalized knowing that he may have liver cancer as well as a blood clot. He also stated that he does not know if he will go [place] [facility] or if his workup will be as an outpatient. Darryl shared that he has a family history of cancer as well as heart disease and he knows he already has cirrhosis. He discussed the fact that he used to be a very heavy drinker, often drinking a case of beer as well as hard liquor every day. He proudly shared that he has been sober for 15 months. Darryl is scheduled for an MRI today which he verbalized will likely give him some answers. A:Darryl is a 50 year old man admitted on 05/20/21with chest pain and portal vein thrombosis P:Anticipate Darryl will return home when medically cleared. He will be driven home via private vehicle when ready. He will follow up with his PCP and discharge plan of care. CM will continue to follow.
[2021-05-23] MEDS: Gabapentin 600 MG TAB 1200 MG PO (08:43)
[2021-05-23 11:38] LABS: Hepatitis A Antibody IgM Negative (Negative); Hepatitis B Core Antibody Negative (Negative); Hepatitis B surface Ag Negative (Negative); Hepatitis C Ab w Rflx HCV PCR Negative (Negative)
[2021-05-23] MEDS: Gadoterate meglumine 20 ML VIAL 10 ML IVP (12:21)
[2021-05-23 13:32] VITALS: BP 127/89; PULSE 100; RESP 18; TEMP 36.7; O2SAT 94
[2021-05-23] MEDS: oxyCODONE-CR 10 MG TABCR PO (13:47)
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
[2021-05-23 15:00] VITALS: PULSE 92
[2021-05-23 15:48] LABS: AFP Tumor Marker >100000.0 ng/mL (<8.1)
== END 2021-05-23 15:11 | disposition home or self-care (01) | DRG 442 ==
LOC: ER 17:57 → MS 18:49
PROVIDERS: Family Medicine; Admitting Provider Family Medicine; Emergency Provider Registered Nurse Emergency; PCP Nurse Practitioner Family; Visit Provider Family Medicine
DX: I81 Portal vein thrombosis (principal); C22.0 Liver cell carcinoma; Z68.43 Body mass index [BMI] 50.0-59.9, adult; K74.60 Unspecified cirrhosis of liver; E11.9 Type 2 diabetes mellitus without complications; F17.210 Nicotine dependence, cigarettes, uncomplicated; I10 Essential (primary) hypertension; Z79.84 Long term (current) use of oral hypoglycemic drugs; F10.11 Alcohol abuse, in remission; F39 Unspecified mood [affective] disorder; E83.42 Hypomagnesemia; N40.0 Benign prostatic hyperplasia without lower urinary tract symptoms; G25.81 Restless legs syndrome; E78.5 Hyperlipidemia, unspecified; J45.909 Unspecified asthma, uncomplicated; G43.909 Migraine, unspecified, not intractable, without status migrainosus; K21.9 Gastro-esophageal reflux disease without esophagitis; G89.29 Other chronic pain; M54.9 Dorsalgia, unspecified; E66.01 Morbid (severe) obesity due to excess calories; Z20.822 Contact with and (suspected) exposure to COVID-19
CPT/HCPCS: 36415; 71275; 74177; 74183; 80053; 83690; 85027; 86704; 86709; 86803; 87340; 87635; 93005; 96372; 96374; 96375; 96376; 99291; J1650; 82105; 83735; 84484; 85025; 85610; 85730; 93010; 99233; 99239; J2270; J2405; J3490

== ENCOUNTER 2021-06-02 11:05 | Outpatient (REF) | payer OTHER, MEDICAID, SELFPAY ==
[2021-06-07 13:32] LABS: Codeine Negative ng/mL (Cutoff: 25); Dihydrocodeine Negative ng/mL (Cutoff: 25); Hydrocodone Negative ng/mL (Cutoff: 25); Hydromorphone Negative ng/mL (Cutoff: 25); Morphine Negative ng/mL (Cutoff: 25); Naloxone Negative ng/mL (Cutoff: 25); Norhydrocodone Negative ng/mL (Cutoff: 25); Noroxycodone 100 ng/mL (Cutoff: 25); Noroxymorphone 34 ng/mL (Cutoff: 25); Opiates Interpretation Positive.
== END 2021-06-02 11:06 | disposition home or self-care (01) ==
LOC: LBN 11:05
PROVIDERS: PCP Nurse Practitioner Family; Visit Provider Nurse Practitioner Family
DX: Z51.81 Encounter for therapeutic drug level monitoring (principal)
CPT/HCPCS: 80361; 80362; 80365

== ENCOUNTER 2021-06-16 01:53 | Outpatient (CLI) | payer OTHER, MEDICAID, SELFPAY ==
--- NOTE | 2021-06-16 07:08 | DI.CT_ITS ---
Exam(s) CT ABDOMEN W EXAM: CT ABDOMEN W CLINICAL HISTORY: Follow portal vein thrombisis to ensure stability,I81 TECHNIQUE: IV contrast = 100 mL Omnipaque 350 COMPARISON: Recent CT scan 05/20/2021 and MRI scan 05/23/2021 FINDINGS: Visualized lung bases are clear. No pleural effusions. There is a small amount of perihepatic ascites. The enlarged and cirrhotic appearing liver is again noted as is the previously described concerning m ass in the liver adjacent to the gallbladder fossa. With respect to the portal venous system, there is again noted intraluminal thrombus occluding the in trahepatic middle portal vein and also extending into the intrahepatic right portal vein (incompletel y occlusive), unchanged. There is no thrombus within the intrahepatic left portal vein. The main po rtal vein from the portal vein confluence into the liver remains patent as are the splenic and super ior mesenteric veins. Gallbladder appears unchanged. No new findings in the pancreas. Spleen size unchanged. No adrenal masses. No new significant focal findings in the kidneys. No hydronephrosis. Abdominal aorta is no t enlarged and there is no [id number] adenopathy. No adenopathy around the aortic b ifurcation. No evidence of anterior abdominal hernia. No bowel obstruction. Osseous: No significant osseous lesions. IMPRESSION: Minimal if any significant change when compared to 05/20/2021. Again noted is previously described m ass in the right hepatic lobe adjacent to the gallbladder fossa, this superimposed upon a severely ci rrhotic appearing liver. Small amount of perihepatic ascites now evident. Intraluminal filling defect-thrombus again noted within the middle and right intrahepatic portal vei ns with sparing of the left intrahepatic portal vein. This is unchanged from the prior study.
[2021-06-16] MEDS: Omnipaque 350 MG/ML 100 ML BTL IV (08:45)
== END 2021-06-16 02:13 ==
PROVIDERS: PCP Nurse Practitioner Family; Visit Provider Nurse Practitioner Family
DX: I81 Portal vein thrombosis (principal); K76.89 Other specified diseases of liver; R18.8 Other ascites; K74.60 Unspecified cirrhosis of liver
CPT/HCPCS: 74160; J3490

== ENCOUNTER 2021-07-09 08:29 | Emergency (ER) | payer OTHER, MEDICAID, SELFPAY ==
[2021-07-09] VITALS (50 sets, daily range): BP systolic 107–147; BP diastolic 54–110; PULSE 89–190; RESP 15–37; TEMP 36.6–36.8; O2SAT 94–99
[2021-07-09] MEDS: Normal Saline 1,000 ML 1000 ML IV (09:04)
[2021-07-09] MEDS: Pantoprazole 40 MG VIAL 80 MG IVP (09:05)
[2021-07-09] MEDS: FAMOTIDINE 20 MG/50 ML BAG 100 MG IVPB (09:05)
[2021-07-09 09:12] LABS: Abs Immature Grans 0.03 10^3/uL (0.0-0.06); Absolute Basophil Count 0.07 10^3/uL (0.0-0.2); Absolute Lymphocyte Count 1.14 10^3/uL (1.2-3.4); Absolute Monocyte Count 0.68 10^3/uL (0.1-0.8); Absolute Neutrophil Count 5.81 10^3/uL (1.2-6.7); Basophils % 0.9; Eosinophils % 2.5; HGB 12.4 g/dL (13.5-17.5); Immature Grans % 0.4; Lymphocytes % 14.4; MCH 27.9 pg (27.0-33.0); MCHC 32.6 % (32.0-36.0); MCV 85.6 fL (80-95); MPV 11.6 fL (8.0-11.0); Monocytes % 8.6; Neutrophils % 73.2; Nucleated RBC 0 %; Platelet Count 251 10^3/uL (130-400); RBC 4.44 10^6/uL (4.36-5.78); RDW 16.8 % (11.8-14.1); RDW-SD 52.1 fL; WBC 7.93 10^3/uL (4.4-10.8)
--- NOTE | 2021-07-09 09:18 | W.ED.GENAD ---
Discharge Plan Disposition Patient Disposition: [facility] Condition: Serious Discharge Details Chief Complaint: GI Bleed Clinical Impression: Acute GI bleeding Primary Care Provider: Stephany Kline ED Provider: Geovany Funk Home Meds and New Rx's Prescriptions: No Action metformin 1,000 mg tablet 1,000 mg PO BID Qty: 60 RF: 11 topiramate 25 mg tablet 25 mg PO BID Qty: 60 RF: 11 ropinirole 1 mg tablet 1.5 mg PO QHS Qty: 135 RF: 3 citalopram 20 mg tablet 20 mg PO DAILY Qty: 90 RF: 0 polyethylene glycol 3350 [Miralax] 17 gram/dose powder 17 g PO DAILY Qty: 850 RF: 0 multivitamin Tablet 1 tab PO DAILY Qty: 30 RF: 11 loratadine 10 mg tablet 10 mg PO DAILY Qty: 30 RF: 11 albuterol sulfate 90 mcg/actuation HFA aerosol inhaler 1 - 2 puff Inhalation Q4H PRN Qty: 8.5 RF: 3 (DME) pen needle, diabetic [Easy Touch] 1 EACH needle 1 ea Miscellaneous DAILY Qty: 100 RF: 3 acetaminophen [Acetaminophen Extra Strength] 500 MG tablet 1,000 mg PO BID Qty: 120 RF: 11 Diabetic Shoes Miscellaneous DAILY Qty: 1 RF: 0 fluticasone propionate [Flonase Allergy Relief] 9.9 ML spray,suspension 1 - 2 spry NS DAILY Qty: 3 RF: 3 medical marijuana Inhalation PRN RF: 0 melatonin 10 mg tablet 10 mg PO HS PRN (Reason: insomnia) Qty: 30 RF: 1 ammonium lactate 12 % cream 1 applic TP QD-BID PRN (Reason: dry skin) Qty: 140 RF: 3 (DME) Blood Glucose Test Strip See Rx Instructions .ROUTE .MEDSUPPLY Qty: 100 RF: 3 (DME) lancets Misc See Rx Instructions .ROUTE .MEDSUPPLY Qty: 100 RF: 3 diclofenac sodium [Voltaren] 1 % gel 2 - 4 g topical QID PRN (Reason: pain) Qty: 100 RF: 3 lisinopril 2.5 mg tablet 2.5 mg PO DAILY Qty: 30 RF: 11 aspirin 81 mg tablet,delayed release (DR/EC) 81 mg PO DAILY Qty: 30 RF: 11 carbamazepine 200 mg tablet 200 mg PO BID Qty: 60 RF: 11 gabapentin 600 mg tablet 1,200 mg PO BID Qty: 120 RF: 11 tamsulosin [Flomax] 0.4 mg capsule 0.8 mg PO DAILY Qty: 60 RF: 11 oxybutynin chloride 5 mg tablet 5 mg PO BID Qty: 60 RF: 11 atorvastatin 40 mg tablet 40 mg PO DAILY Qty: 30 RF: 11 clotrimazole 1 % cream 1 applic topical .qod RF: 0 morphine 15 mg tablet extended release 15 mg PO Q12H MDD 30 mg Qty: 56 RF: 0 morphine 15 mg tablet 7.5 mg PO TID MDD 22.5 mg PRN (Reason: pain) Qty: 42 RF: 0 hydrocortisone 30 GM cream 30 gm Topical TID PRNQty: 1 RF: 0 sennosides [Senokot] 8.6 mg Tablet 1 tab PO BID PRN PRNQty: 0 RF: 0 nicotine [Nicoderm CQ] 21 mg/24 hr patch 24 hour 1 patch transdermal DAILY Qty: 14 RF: 0 nicotine [Nicoderm CQ] 14 mg/24 hr patch 24 hour 1 patch transdermal DAILY Qty: 14 RF: 0 nicotine [Nicoderm CQ] 7 mg/24 hr patch 24 hour 1 patch transdermal Q24H Qty: 14 RF: 0 Medical Decision Making <SULEMA Grayson - Last Filed: 07/09/21 14:08> This is a 50-year-old gentleman, past sickle history of morbid obesity, hypertension, diabetes, hepatocellular cancer, currently being worked up and treated at [facility]. Presents today with 4-day history of melena and 1 day history of vomiting what he describes as a charcoal color at this morning. Clinically he appears slightly anxious, tachycardic at 117, blood pressure 147/84. Diffuse mild upper abdominal discomfort but nonsurgical at this time. Plan is to obtain IV access, obtain routine laboratory values including a type and screen, patient will likely need a surgical consult and/or admission depending on his laboratory values findings. We'll provide him with 1 L IV fluid and 4 mg IV Zofran for his nausea as well as 1 mg IV Ativan for his anxiety. Patient will also be treated with H2 bee and PPI Patient was monitored here in the ER, heart rate typically fluctuates between 98 and 118. Blood pressure remains normotensive. Laboratory values reveal mild anemia hemoglobin 12.4, hematocrit 38. Platelet count 251. INR of 1.2. Electrolytes unremarkable. Creatinine 0.8 with a GFR greater than 60. Glucose 256. Total bili 0.8, AST 136 ALT 114 alk phos disease 293. Lipase 87. Urinalysis pending. Plan is to obtain a repeat CBC as he has had at least 3 episodes of melena here in the ER. We'll also obtain CT imaging of abdomen and pelvis given his recent diagnosis of hepatocellular cancer. CT imaging does not reveal any acute process. Repeat H&H reveal hemoglobin has dropped now down to 10.4 and hematocrit down to 32. Given his presentation, tachycardia, decreasing H&H, I believe as though patient needs to be admitted for likely colonoscopy and endoscopy. Given the CT which reveals varices, will give Octeotride bolus and infusion Case discussed with Dr. Gomes who will come personally evaluate the patient to determine whether appropriate for admission here or need higher level of care. Call was placed to [facility], they recommend speaking with the hospitalist team. I was able to speak with Dr. Reyna who is agreeable to accept transfer of the patient, recommends an ER to ER transfer. Also recommends initiating 1 g IV Rocephin. Patient's heart rate is currently 97, most recent blood pressure 139/93. Discussed plan of transfer with patient and family. They have no additional questions or concerns and are comfortable with this plan. Insert dragon. Medical Records Medical records reviewed: Yes I reviewed the patient's medical records. Imaging Data Radiologic Study: Attestation: I personally reviewed and interpreted this imaging study as follows: Imaging: CT Scan Radiologist's impression: PROCEDURE INFORMATION: Exam: CT Abdomen And Pelvis With Contrast Exam date and time: 07/09/2021 10:04 AM Age: 50 years old Clinical indication: Vomiting; Abdominal pain; Epigastric; Patient HX: Liver CA, gi bleed, abd pain. TECHNIQUE: Imaging protocol: Computed tomography of the abdomen and pelvis with contrast. Radiation optimization: All CT scans at this facility use at least one of these dose optimization techniques: automated exposure control; mA and/or kV adjustment per patient size (includes targeted exams where dose is matched to clinical indication); or iterative reconstruction. Contrast material: OMNIPAQUE 350; Contrast volume: 100 ml; Contrast route: INTRAVENOUS (IV); COMPARISON: CT ABDOMEN W 06/16/2021 8:45 AM FINDINGS: Liver: Stable appearance of cirrhosis the liver. Redemonstration hypodense mass in the right lobe of the liver with slightly decreased enhancement than before and could be due to phase of the contrast. Gallbladder and bile ducts: Gallbladder is under distended. Mild fluid adjacent to the gallbladder, likely due to ascites. Pancreas: Normal. No ductal dilation. Spleen: Mild splenomegaly. Adrenal glands: Normal. No mass. Kidneys and ureters: Normal. No hydronephrosis. Stomach and bowel: Diffusely under distended large bowel with scattered diverticulosis most pronounced in the descending and sigmoid colon. Small bowel is nondilated. There is mucosal thickening noted in the jejunal folds. Appendix: No evidence of appendicitis. Intraperitoneal space: There is trace ascites and mesenteric edema, probably due to cirrhosis [facility] Preliminary Radiology Report ROLLER LEVELER (QA) DISCREPANCY? If there is a discrepancy between the preliminary and final interpretation, please notify [employer] via [email or web address]. If you do not have access to our QA portal, call our QA team at [phone] CONFIDENTIALITY STATEMENT This report is intended only for the use of the referring physician, and only in accordance with law, If you received this in error, call [phone] Page 2 of 2 Vasculature: There is stable filling defect in the right and middle portal vein . Stable gastroesophageal varices and recanalization mild paraumbilical veins. Lymph nodes: No enlarged lymph nodes. There are nonenlarged paraesophageal lymph nodes noted at the gastroesophageal junction. Urinary bladder: Unremarkable as visualized. Reproductive: Unremarkable as visualized. Bones/joints: There is left hip arthroplasty. Soft tissues: There is small umbilical hernia containing trace amount of fluid and a tiny section of small bowel. No evidence of obstruction or incarceration. IMPRESSION: 1. Cirrhosis of the liver. Stable mass in the right lobe of the liver. 2. Stable portosystemic shunting with gastroesophageal varices noted. Stable chronic appearance of portal venous thrombosis. 3. Trace ascites and mesenteric edema, likely due to cirrhosis. 4. Mucosal thickening of the small bowel in the left upper quadrant, probably due to cirrhosis and/or enteritis. 5. Diverticulosis of colon without acute inflammation. Thank you for allowing us to participate in the care of your patient. Lab Data Lab results reviewed: Yes I reviewed the patient's lab results. Labs: 07/09/21 10:03 Stool Stool Occult Blood ([facility]AMI) - Pending Laboratory Tests Range/Units 07/09/21 07/09/21 07/09/21 08:44 08:50 08:50 WBC (4.4-10.8) 10^3/uL RBC (4.36-5.78) 10^6/uL Hgb (13.5-17.5) g/dL Hct (40.0-50.0) % MCV (80-95) fL MCH (27.0-33.0) pg MCHC (32.0-36.0) % RDW (11.8-14.1) % Plt Count (130-400) 10^3/uL MPV (8.0-11.0) fL Immature Gran % Neutrophils % Lymphocytes % Monocytes % Eosinophils % Basophils % Nucleated RBC % % Absolute Neutrophils (1.2-6.7) 10^3/uL Absolute Lymphocytes (1.2-3.4) 10^3/uL Absolute Monocytes (0.1-0.8) 10^3/uL Absolute Eosinophils (0.0-0.7) 10^3/uL Absolute Basophils (0.0-0.2) 10^3/uL PT (9.3-11.0) sec 11.6 H INR (0.9-1.1) 1.2 H Sodium (136-145) mmol/L Potassium (3.5-5.1) mmol/L Chloride (98-107) mmol/L Carbon Dioxide (21.0-32.0) mmol/L Anion Gap (3-11) mmol/L BUN (7-18) mg/dL Creatinine (0.70-1.30) mg/dL Estimated GFR/1.73 m2 (mL/min/1.73m2) Glucose (74-106) mg/dL Calcium (8.5-10.1) mg/dL Total Bilirubin (0.2-1.0) mg/dL AST (15-37) U/L ALT (16-63) U/L Alkaline Phosphatase (46-116) U/L Total Protein (6.4-8.2) g/dL Albumin (3.4-5.0) g/dL Lipase Cancelled Urine Color (Yellow) Urine Clarity (Clear) Urine pH (5-8) Ur Specific [place] (1.005-1.025) Urine Protein (Negative) mg/dL Urine Ketones (Negative) mg/dL Urine Blood (Negative) Urine Nitrite (Negative) Urine Bilirubin (Negative) Urine Urobilinogen (Up TO 0.2) EU/dL Ur Leukocyte Esterase (Negative) Urine Glucose (Negative) mg/dL Urine Opiates Screen (Negative) Urine Methadone Screen (Negative) Ur Barbiturates Screen (Negative) Ur Tricyclics Screen (Negative) Ur Amphetamines Screen (Negative) U Benzodiazepines Scrn (Negative) Urine Cocaine Screen (Negative) Ur THC Screen (Negative) COVID-19 Source Patient ABO/Rh Cancelled Antibody Screen Range/Units 07/09/21 07/09/21 07/09/21 08:50 08:50 09:25 WBC (4.4-10.8) 10^3/uL 7.93 RBC (4.36-5.78) 10^6/uL 4.44 Hgb (13.5-17.5) g/dL 12.4 L Hct (40.0-50.0) % 38.0 L MCV (80-95) fL 85.6 MCH (27.0-33.0) pg 27.9 MCHC (32.0-36.0) % 32.6 RDW (11.8-14.1) % 16.8 H Plt Count (130-400) 10^3/uL 251 MPV (8.0-11.0) fL 11.6 H Immature Gran % 0.4 Neutrophils % 73.2 Lymphocytes % 14.4 Monocytes % 8.6 Eosinophils % 2.5 Basophils % 0.9 Nucleated RBC % % 0 Absolute Neutrophils (1.2-6.7) 10^3/uL 5.81 Absolute Lymphocytes (1.2-3.4) 10^3/uL 1.14 L Absolute Monocytes (0.1-0.8) 10^3/uL 0.68 Absolute Eosinophils (0.0-0.7) 10^3/uL 0.20 Absolute Basophils (0.0-0.2) 10^3/uL 0.07 PT (9.3-11.0) sec INR (0.9-1.1) Sodium (136-145) mmol/L 137 Potassium (3.5-5.1) mmol/L 4.6 Chloride (98-107) mmol/L 100 Carbon Dioxide (21.0-32.0) mmol/L 26.1 Anion Gap (3-11) mmol/L 10.9 BUN (7-18) mg/dL 17 Creatinine (0.70-1.30) mg/dL 0.8 Estimated GFR/1.73 m2 (mL/min/1.73m2) >= 60.00 Glucose (74-106) mg/dL 256 H Calcium (8.5-10.1) mg/dL 9.8 Total Bilirubin (0.2-1.0) mg/dL 0.8 AST (15-37) U/L 136 H ALT (16-63) U/L 114 H Alkaline Phosphatase (46-116) U/L 293 H Total Protein (6.4-8.2) g/dL 7.7 Albumin (3.4-5.0) g/dL 2.9 L Lipase 87 Urine Color (Yellow) Urine Clarity (Clear) Urine pH (5-8) Ur Specific [place] (1.005-1.025) Urine Protein (Negative) mg/dL Urine Ketones (Negative) mg/dL Urine Blood (Negative) Urine Nitrite (Negative) Urine Bilirubin (Negative) Urine Urobilinogen (Up TO 0.2) EU/dL Ur Leukocyte Esterase (Negative) Urine Glucose (Negative) mg/dL Urine Opiates Screen (Negative) Urine Methadone Screen (Negative) Ur Barbiturates Screen (Negative) Ur Tricyclics Screen (Negative) Ur Amphetamines Screen (Negative) U Benzodiazepines Scrn (Negative) Urine Cocaine Screen (Negative) Ur THC Screen (Negative) COVID-19 Source Patient ABO/Rh O Positive Antibody Screen NEGATIVE Range/Units 07/09/21 07/09/21 07/09/21 09:51 10:40 10:40 WBC (4.4-10.8) 10^3/uL RBC (4.36-5.78) 10^6/uL Hgb (13.5-17.5) g/dL Hct (40.0-50.0) % MCV (80-95) fL MCH (27.0-33.0) pg MCHC (32.0-36.0) % RDW (11.8-14.1) % Plt Count (130-400) 10^3/uL MPV (8.0-11.0) fL Immature Gran % Neutrophils % Lymphocytes % Monocytes % Eosinophils % Basophils % Nucleated RBC % % Absolute Neutrophils (1.2-6.7) 10^3/uL Absolute Lymphocytes (1.2-3.4) 10^3/uL Absolute Monocytes (0.1-0.8) 10^3/uL Absolute Eosinophils (0.0-0.7) 10^3/uL Absolute Basophils (0.0-0.2) 10^3/uL PT (9.3-11.0) sec INR (0.9-1.1) Sodium (136-145) mmol/L Potassium (3.5-5.1) mmol/L Chloride (98-107) mmol/L Carbon Dioxide (21.0-32.0) mmol/L Anion Gap (3-11) mmol/L BUN (7-18) mg/dL Creatinine (0.70-1.30) mg/dL Estimated GFR/1.73 m2 (mL/min/1.73m2) Glucose (74-106) mg/dL Calcium (8.5-10.1) mg/dL Total Bilirubin (0.2-1.0) mg/dL AST (15-37) U/L ALT (16-63) U/L Alkaline Phosphatase (46-116) U/L Total Protein (6.4-8.2) g/dL Albumin (3.4-5.0) g/dL Lipase Urine Color (Yellow) Yellow Urine Clarity (Clear) Clear Urine pH (5-8) 7.0 Ur Specific [place] (1.005-1.025) 1.015 Urine Protein (Negative) mg/dL Negative Urine Ketones (Negative) mg/dL 15 H Urine Blood (Negative) Negative Urine Nitrite (Negative) Negative Urine Bilirubin (Negative) Negative Urine Urobilinogen (Up TO 0.2) EU/dL 0.2 Ur Leukocyte Esterase (Negative) Negative Urine Glucose (Negative) mg/dL 500 H Urine Opiates Screen (Negative) Negative Urine Methadone Screen (Negative) Negative Ur Barbiturates Screen (Negative) Negative Ur Tricyclics Screen (Negative) Negative Ur Amphetamines Screen (Negative) Negative U Benzodiazepines Scrn (Negative) Negative Urine Cocaine Screen (Negative) Negative Ur THC Screen (Negative) Negative COVID-19 Source Nasal/Nares Patient ABO/Rh Antibody Screen Range/Units 07/09/21 10:45 WBC (4.4-10.8) 10^3/uL 5.67 RBC (4.36-5.78) 10^6/uL 3.71 L Hgb (13.5-17.5) g/dL 10.4 L Hct (40.0-50.0) % 32.0 L MCV (80-95) fL 86.3 MCH (27.0-33.0) pg 28.0 MCHC (32.0-36.0) % 32.5 RDW (11.8-14.1) % 16.9 H Plt Count (130-400) 10^3/uL 186 MPV (8.0-11.0) fL 11.5 H Immature Gran % 0.7 Neutrophils % 76.7 Lymphocytes % 13.1 Monocytes % 7.6 Eosinophils % 1.2 Basophils % 0.7 Nucleated RBC % % 0 Absolute Neutrophils (1.2-6.7) 10^3/uL 4.35 Absolute Lymphocytes (1.2-3.4) 10^3/uL 0.74 L Absolute Monocytes (0.1-0.8) 10^3/uL 0.43 Absolute Eosinophils (0.0-0.7) 10^3/uL 0.07 Absolute Basophils (0.0-0.2) 10^3/uL 0.04 PT (9.3-11.0) sec INR (0.9-1.1) Sodium (136-145) mmol/L Potassium (3.5-5.1) mmol/L Chloride (98-107) mmol/L Carbon Dioxide (21.0-32.0) mmol/L Anion Gap (3-11) mmol/L BUN (7-18) mg/dL Creatinine (0.70-1.30) mg/dL Estimated GFR/1.73 m2 (mL/min/1.73m2) Glucose (74-106) mg/dL Calcium (8.5-10.1) mg/dL Total Bilirubin (0.2-1.0) mg/dL AST (15-37) U/L ALT (16-63) U/L Alkaline Phosphatase (46-116) U/L Total Protein (6.4-8.2) g/dL Albumin (3.4-5.0) g/dL Lipase Urine Color (Yellow) Urine Clarity (Clear) Urine pH (5-8) Ur Specific [place] (1.005-1.025) Urine Protein (Negative) mg/dL Urine Ketones (Negative) mg/dL Urine Blood (Negative) Urine Nitrite (Negative) Urine Bilirubin (Negative) Urine Urobilinogen (Up TO 0.2) EU/dL Ur Leukocyte Esterase (Negative) Urine Glucose (Negative) mg/dL Urine Opiates Screen (Negative) Urine Methadone Screen (Negative) Ur Barbiturates Screen (Negative) Ur Tricyclics Screen (Negative) Ur Amphetamines Screen (Negative) U Benzodiazepines Scrn (Negative) Urine Cocaine Screen (Negative) Ur THC Screen (Negative) COVID-19 Source Patient ABO/Rh Antibody Screen <Ari Mckeon MD - Last Filed: 07/09/21 09:52> Patient seen, evaluated at the bedside and discussed with Good. I agree with his evaluation and plan. HPI <SULEMA Grayson - Last Filed: 07/09/21 14:08> General Mode of arrival: ambulatory. Date/Time Provider Initiated Documentation: 07/09/21 08:30. Limitations to Documentation: no limitations. Information obtained by: patient and family. HPI Narrative: This is a 50-year-old gentleman, past medical history of morbid obesity, history of alcohol abuse, sober for the past 18 months, former smoker, quit smoking approximately 2 months ago, diabetes, chronic pain, GERD, migraines, hypertension, recent diagnosis of hepatocellular cancer, currently being evaluated and worked up at [facility], presenting for 4-day history of dark stools, and vomiting charcoal once this morning. Patient reports that he has chronic abdominal discomfort from the hepatocellular cancer which is essentially unchanged today. He denies recent illness or trauma. Patient denies any fever, chest pain, shortness of breath, blood in his vomit, blood in his stools, constipation, dysuria, anticoagulation, easy bruising or bleeding. Patient states that since his diagnosis of CA back in May, his diet has changed and he has had primarily loose stools since that time. They initially thought he had a portal vein thrombosis but upon additional testing they stated that it was tumor at the erodes into his vessels and not a thrombosis. He has had a single dose of radiation but is scheduled for a more extensive radiation treatment. He reports a colonoscopy and endoscopy approximately 2 years ago. He admits that he is both anxious and scared. The patient has had 2 vaccines and his booster for COVID. No history of any known varices. Related Data Home Medications Medication Instructions Recorded Confirmed pen needle, diabetic [Easy Touch] #100 04/13/15 07/09/21 acetaminophen [Acetaminophen Extra 1,000 mg PO BID #120 tab-cap 07/28/15 07/09/21 Strength] fluticasone propionate [Flonase 1 - 2 spry NS DAILY #3 bottle 06/08/17 07/09/21 Allergy Relief] Medical Marijuana INHALATION PRN 08/27/17 06/02/21 hydrocortisone 30 gm TOPICAL TID PRN #1 tube 11/12/17 07/09/21 melatonin 10 mg tablet 10 mg PO HS PRN #30 tab-cap 05/24/18 07/09/21 ammonium lactate 12 % topical cream 1 applic TP QD-BID PRN #140 gm 04/24/19 07/09/21 blood sugar diagnostic #100 ea 11/10/20 07/09/21 lancets #100 ea 11/10/20 07/09/21 metformin 1,000 mg tablet 1,000 mg PO BID #60 tab 11/12/20 07/09/21 ropinirole 1 mg tablet 1.5 mg PO QHS #135 tab 11/12/20 07/09/21 topiramate 25 mg tablet 25 mg PO BID #60 tab 11/12/20 07/09/21 diclofenac sodium 1 % topical gel 2 - 4 g TOPICAL QID PRN #100 g 01/10/21 07/09/21 lisinopril 2.5 mg tablet 2.5 mg PO DAILY #30 tab-cap 01/10/21 07/09/21 aspirin 81 mg tablet,delayed 81 mg PO DAILY #30 tab-cap 02/09/21 07/09/21 release carbamazepine 200 mg tablet 200 mg PO BID #60 tab-cap 03/11/21 07/09/21 gabapentin 600 mg tablet 1,200 mg PO BID #120 tab-cap 03/11/21 07/09/21 tamsulosin 0.4 mg capsule 0.8 mg PO DAILY #60 tab-cap 03/11/21 07/09/21 albuterol sulfate 90 mcg/actuation 1 - 2 puff INHALATION Q4H PRN #8.5 04/05/21 07/09/21 aerosol inhaler g oxybutynin chloride 5 mg tablet 5 mg PO BID #60 tab-cap 04/15/21 07/09/21 atorvastatin 40 mg tablet 40 mg PO DAILY #30 tab-cap 05/18/21 07/09/21 nicotine [Nicoderm CQ] 1 patch TRANSDERMAL DAILY #14 ea 05/23/21 07/09/21 nicotine [Nicoderm CQ] 1 patch TRANSDERMAL DAILY #14 ea 05/23/21 07/09/21 nicotine [Nicoderm CQ] 1 patch TRANSDERMAL Q24H #14 ea 05/23/21 07/09/21 sennosides [Senokot] 1 tab PO BID PRN PRN #0 tab 05/23/21 07/09/21 citalopram 20 mg tablet 20 mg PO DAILY #90 tab-cap 06/02/21 07/09/21 loratadine 10 mg tablet 10 mg PO DAILY #30 tab-cap 06/02/21 07/09/21 multivitamin 1 tab PO DAILY #30 tab-cap 06/02/21 07/09/21 polyethylene glycol 3350 17 17 g PO DAILY #850 g 06/02/21 07/09/21 gram/dose oral powder clotrimazole 1 % topical cream 1 applic TOPICAL .qod g 06/30/21 07/09/21 morphine 15 mg immediate release 7.5 mg PO TID PRN #42 tab MDD 22.5 07/08/21 07/09/21 tablet mg morphine 15 mg tablet,extended 15 mg PO Q12H #56 tab MDD 30 mg 07/08/21 07/09/21 release Previous Rx's Medication Instructions Recorded fluticasone propionate [Flonase 1 - 2 spry NS DAILY #3 bottle 06/08/17 Allergy Relief] hydrocortisone 30 gm TOPICAL TID PRN #1 tube 11/12/17 melatonin 10 mg tablet 10 mg PO HS PRN #30 tab-cap 05/24/18 ammonium lactate 12 % topical cream 1 applic TP QD-BID PRN #140 gm 04/24/19 blood sugar diagnostic #100 ea 11/10/20 lancets #100 ea 11/10/20 metformin 1,000 mg tablet 1,000 mg PO BID #60 tab 11/12/20 ropinirole 1 mg tablet 1.5 mg PO QHS #135 tab 11/12/20 topiramate 25 mg tablet 25 mg PO BID #60 tab 11/12/20 diclofenac sodium 1 % topical gel 2 - 4 g TOPICAL QID PRN #100 g 01/10/21 lisinopril 2.5 mg tablet 2.5 mg PO DAILY #30 tab-cap 01/10/21 aspirin 81 mg tablet,delayed 81 mg PO DAILY #30 tab-cap 02/09/21 release carbamazepine 200 mg tablet 200 mg PO BID #60 tab-cap 03/11/21 gabapentin 600 mg tablet 1,200 mg PO BID #120 tab-cap 03/11/21 tamsulosin 0.4 mg capsule 0.8 mg PO DAILY #60 tab-cap 03/11/21 albuterol sulfate 90 mcg/actuation 1 - 2 puff INHALATION Q4H PRN #8.5 04/05/21 aerosol inhaler g oxybutynin chloride 5 mg tablet 5 mg PO BID #60 tab-cap 04/15/21 atorvastatin 40 mg tablet 40 mg PO DAILY #30 tab-cap 05/18/21 nicotine [Nicoderm CQ] 1 patch TRANSDERMAL DAILY #14 ea 05/23/21 nicotine [Nicoderm CQ] 1 patch TRANSDERMAL DAILY #14 ea 05/23/21 nicotine [Nicoderm CQ] 1 patch TRANSDERMAL Q24H #14 ea 05/23/21 sennosides [Senokot] 1 tab PO BID PRN PRN #0 tab 05/23/21 citalopram 20 mg tablet 20 mg PO DAILY #90 tab-cap 06/02/21 loratadine 10 mg tablet 10 mg PO DAILY #30 tab-cap 06/02/21 multivitamin 1 tab PO DAILY #30 tab-cap 06/02/21 polyethylene glycol 3350 17 17 g PO DAILY #850 g 06/02/21 gram/dose oral powder morphine 15 mg immediate release 7.5 mg PO TID PRN #42 tab MDD 22.5 07/08/21 tablet mg morphine 15 mg tablet,extended 15 mg PO Q12H #56 tab MDD 30 mg 07/08/21 release Allergies Allergy/AdvReac Type Severity Reaction Status Date / Time oxycodone AdvReac Nausea Verified 07/09/21 08:38 General Stated Complaint: GI Bleed ANGY: 2 Review of Systems <SULEMA Grayson - Last Filed: 07/09/21 14:08> Constitutional Constitutional: Denies fever(s) and Denies weakness ENT Ears, Nose, Mouth, and Throat: Denies neck pain Cardiovascular Cardiovascular: Denies chest pain and Denies dyspnea Respiratory Respiratory: Denies cough and Denies dyspnea Gastrointestinal Gastrointestinal: Reports abdominal pain, Reports melena, Denies hematochezia, Denies constipation, Reports diarrhea, Reports loose stools, Reports nausea and Reports vomiting Musculoskeletal Musculoskeletal: Reports back pain and Denies neck pain Integumentary/Breasts Skin/Breast: Denies rash Neurologic Neurologic: Denies weakness Psychiatric Psychiatric: Reports anxiety Hematologic/Lymphatic Hematologic/Lymphatic: Denies easy bleeding and Denies easy bruising PFSH <SULEMA Grayson - Last Filed: 07/09/21 14:08> All Active Problems (Updated 07/09/21 @ 14:08 by SULEMA Grayson) Acute GI bleeding (Acute) Onychomycosis (Acute) 08/26/20 Podiatry note Cancer, hepatocellular (Acute ~06/2021) Constipation (Acute) Hypomagnesemia (Acute) Cirrhosis (Acute) Portal vein thrombosis (Acute) Liver mass (Acute) Tinea cruris (Acute) Type 2 diabetes mellitus (Chronic) Tinea pedis (Acute) Left wrist pain (Acute) Left knee pain (Acute) 01/25/21 Injection at [facility] Obesity (Chronic) Has been evaluated for bariatric surgery at [facility] in the past & was 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 (per pt) --> Miller's resolved per 2016 EGD --> referred to [facility] 10/2015 --> pt decided not to pursue (success with [facility]) Tobacco use disorder (Acute) Depression (Chronic 04/27/16) BPH (benign prostatic hyperplasia) (Chronic) Restless legs syndrome (Acute) History of supraventricular tachycardia (Acute) Hyperlipidemia, unspecified (Chronic) 05/2015: 10-year ASCVD risk = ~16% - started on statin Essential hypertension (Chronic) Unspecified asthma, uncomplicated (Chronic) Type 2 diabetes mellitus with complication (Chronic) Foot complications: pre-ulcerative callus, flat feet Steatohepatitis (Chronic) Sensorineural hearing loss, bilateral (Chronic 03/14/16) Obstructive sleep apnea (Chronic 02/14/17) CPAP Mood disorder (Chronic)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
[2021-07-09 09:29] LABS: ALT 114 U/L (16-63); AST 136 U/L (15-37); Albumin 2.9 g/dL (3.4-5.0); Alkaline Phosphatase 293 U/L (46-116); Anion Gap 10.9 mmol/L (3-11); BUN 17 mg/dL (7-18); Bilirubin, Total 0.8 mg/dL (0.2-1.0); CO2 26.1 mmol/L (21.0-32.0); CREATININE 0.8 mg/dL (0.70-1.30); Calcium 9.8 mg/dL (8.5-10.1); Chloride 100 mmol/L (98-107); Glucose 256 mg/dL (74-106); Lipase 87 U/L (73-393); Potassium 4.6 mmol/L (3.5-5.1); Sodium 137 mmol/L (136-145); Total Protein 7.7 g/dL (6.4-8.2)
[2021-07-09 09:38] LABS: INR 1.2 (0.9-1.1); Prothrombin Time 11.6 sec (9.3-11.0)
[2021-07-09 09:58] LABS: Source Nasal/Nares
--- NOTE | 2021-07-09 10:00 | DI.CT_ITS ---
Exam(s) CT ABDOMEN PELVIS W EXAM: CT ABDOMEN PELVIS W CLINICAL HISTORY: Liver CA, GI bleed, abdominal pain. TECHNIQUE: Imaging Protocol: Axial computed tomography images with coronal and sagittal reformatted images were created and reviewed CONTRAST MATERIAL: Intravenous: Omnipaque 350 Contrast volume:100 ml Oral: / no COMPARISON: CT CT CHEST PE ABD PELVIS W from 05/20/[address] ABDOMEN W from 06/16/2021 FINDINGS: Exam limited by suboptimal phase of contrast administration, somewhat delayed. Also somewhat limited by motion. ABDOMEN: Lung Bases: Normal where visualized. Stable gastroesophageal varices. Liver: No change cirrhotic appearance. Contrast enhancement is suboptimal in the previously noted ma ss is less apparent. There is geographic fatty infiltration. A small amount of surrounding fluid is noted. There is stable portal vein thrombosis. Gallbladder and biliary tract: Gallbladder is contracted. Small amount of fluid is seen around the g allbladder. No wall thickening. No radiodense calculus or dilation. Pancreas: Normal density, no abnormal calcifications or inflammatory process. Spleen: No change in size. Kidneys: Normal size, contour and axis. No radiodense stones or obstructive uropathy. No masses seen. Adrenal glands: No masses seen. Abdominal Aorta: Abdominal portion non-dilated. Stomach and bowel: Mildly dilated loops of small bowel with wall thickening in the left upper quadran t without focal transition point. No mesenteric vein thrombosis is visible. No visible GI bleed. Small hernia at the level of the umbilicus containing a knuckle of small bowel. This does not appear to be obstructing. PELVIS: Bladder: No gross wall thickening. No calculi.No focal mass. Bowel: Diverticulosis. No evidence of diverticulitis. Normal quantity of stool. No obstruction or bowel wall thickening. Appendix normal. Peritoneal cavity: Mild mesenteric edema could be related to cirrhosis.. Bones: Left hip prosthesis. Degenerative changes in the spine. Reproductive organs: Within normal limits. Lymph nodes: Unremarkable. Impression: Stable appearance of cirrhotic liver and portal vein thrombosis. Previously noted mass is less visib le likely secondary to phase of contrast administration. Mildly dilated loops of small bowel in the left upper quadrant with wall thickening. Findings could be secondary to enteritis. No definite obstruction. No site of GI bleeding is identified. RADIATION DOSE DELIVERED: 1,860.43mGy.cm Total DLP DATA REPOSITORY: All CT scans at this facility are submitted to the National Radiology Data Registry (NRDR) Dose Index Registry (DIR) with the [employer] (ACR). RADIATION OPTIMIZATION: All CT scans at this facility use at least one of these dose optimization te chniques: automated exposure control; mA and/or kV adjustment per patient size (includes targeted exa ms where dose is matched to clinical indication); or iterative reconstruction.
[2021-07-09] MEDS: Omnipaque 350 MG/ML 100 ML BTL IJ (10:12)
[2021-07-09] MEDS: LORazepam 2 MG/ML VIAL 1 MG IVP (10:52)
[2021-07-09] MEDS: Ondansetron 4 MG/2 ML VIAL IVP (10:53)
--- NOTE | 2021-07-09 11:06 | DI.VRAD_ITS ---
PROCEDURE INFORMATION: Exam: CT Abdomen And Pelvis With Contrast Exam date and time: 07/09/2021 10:04 AM Age: 50 years old Clinical indication: Vomiting; Abdominal pain; Epigastric; Patient HX: Liver CA, gi bleed, abd pain. TECHNIQUE: Imaging protocol: Computed tomography of the abdomen and pelvis with contrast. Radiation optimization: All CT scans at this facility use at least one of these dose optimization techniques: automated exposure control; mA and/or kV adjustment per patient size (includes targeted exams where dose is matched to clinical indication); or iterative reconstruction. Contrast material: OMNIPAQUE 350; Contrast volume: 100 ml; Contrast route: INTRAVENOUS (IV); COMPARISON: CT ABDOMEN W 06/16/2021 8:45 AM FINDINGS: Liver: Stable appearance of cirrhosis the liver. Redemonstration hypodense mass in the right lobe of the liver with slightly decreased enhancement than before and could be due to phase of the contrast. Gallbladder and bile ducts: Gallbladder is under distended. Mild fluid adjacent to the gallbladder, likely due to ascites. Pancreas: Normal. No ductal dilation. Spleen: Mild splenomegaly. Adrenal glands: Normal. No mass. Kidneys and ureters: Normal. No hydronephrosis. Stomach and bowel: Diffusely under distended large bowel with scattered diverticulosis most pronounced in the descending and sigmoid colon. Small bowel is nondilated. There is mucosal thickening noted in the jejunal folds. Appendix: No evidence of appendicitis. Intraperitoneal space: There is trace ascites and mesenteric edema, probably due to cirrhosis Vasculature: There is stable filling defect in the right and middle portal vein . Stable gastroesophageal varices and recanalization mild paraumbilical veins. Lymph nodes: No enlarged lymph nodes. There are nonenlarged paraesophageal lymph nodes noted at the gastroesophageal junction. Urinary bladder: Unremarkable as visualized. Reproductive: Unremarkable as visualized. Bones/joints: There is left hip arthroplasty. Soft tissues: There is small umbilical hernia containing trace amount of fluid and a tiny section of small bowel. No evidence of obstruction or incarceration. IMPRESSION: 1. Cirrhosis of the liver. Stable mass in the right lobe of the liver. 2. Stable portosystemic shunting with gastroesophageal varices noted. Stable chronic appearance of portal venous thrombosis. 3. Trace ascites and mesenteric edema, likely due to cirrhosis. 4. Mucosal thickening of the small bowel in the left upper quadrant, probably due to cirrhosis and/or enteritis. 5. Diverticulosis of colon without acute inflammation. Dictated and Authenticated by: Hasmukh Roberts MD. Ordering:JOSE Armenta MD
[2021-07-09 11:14] LABS: Bilirubin Negative (Negative); Blood Negative (Negative); Clarity Clear (Clear); Glucose 500 mg/dL (Negative); Ketones 15 mg/dL (Negative); Leukocyte Esterase Negative (Negative); Nitrite Negative (Negative); Specific Gravity 1.015 (1.005-1.025); Urobilinogen 0.2 EU/dL (Up TO 0.2)
[2021-07-09 11:22] LABS: *AMPHETAMINES SCREEN URINE Negative (Negative); *BARBITURATES SCREEN URINE Negative (Negative); *BENZODIAZEPINES SCREEN URINE Negative (Negative); Cannabinoids THC Negative (Negative); Cocaine Screen,Urine Negative (Negative); METHADONE URINE SCREEN Negative (Negative); OPIATES URINE SCREEN Negative (Negative); Tricyclic Antidepressants Negative (Negative)
[2021-07-09 11:38] LABS: Abs Immature Grans 0.04 10^3/uL (0.0-0.06); Absolute Basophil Count 0.04 10^3/uL (0.0-0.2); Absolute Eosinophil Count 0.07 10^3/uL (0.0-0.7); Absolute Lymphocyte Count 0.74 10^3/uL (1.2-3.4); Absolute Monocyte Count 0.43 10^3/uL (0.1-0.8); Absolute Neutrophil Count 4.35 10^3/uL (1.2-6.7); Basophils % 0.7; Eosinophils % 1.2; HGB 10.4 g/dL (13.5-17.5); Immature Grans % 0.7; Lymphocytes % 13.1; MCHC 32.5 % (32.0-36.0); MCV 86.3 fL (80-95); MPV 11.5 fL (8.0-11.0); Monocytes % 7.6; Neutrophils % 76.7; Nucleated RBC 0 %; Platelet Count 186 10^3/uL (130-400); RBC 3.71 10^6/uL (4.36-5.78); RDW 16.9 % (11.8-14.1); RDW-SD 52.9 fL; WBC 5.67 10^3/uL (4.4-10.8)
[2021-07-09] MEDS: OCTREOTIDE 250 MCG in Normal Saline 245 ML 50 MCG IV (13:29)
[2021-07-09 13:43] LABS: COVID-19 PCR Negative (Negative)
[2021-07-09] MEDS: cefTRIAXone 1 GM/50 ML BAG IVPB (14:01)
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
== END 2021-07-09 14:41 | disposition short-term general hospital (02) ==
PROVIDERS: Emergency Medicine; Emergency Provider Physician Assistant; PCP Nurse Practitioner Family
DX: K92.2 Gastrointestinal hemorrhage, unspecified (principal); E11.9 Type 2 diabetes mellitus without complications; R00.0 Tachycardia, unspecified; C22.0 Liver cell carcinoma; D64.9 Anemia, unspecified; Z20.822 Contact with and (suspected) exposure to COVID-19; F10.11 Alcohol abuse, in remission
CPT/HCPCS: 36416; 80053; 80307; 82962; 83690; 86850; 86900; 86901; 87635; 96361; 96365; 96367; 96368; 96375; 99282; 99291; 74177; 81003; 82272; 85025; 85610; J0696; J2060; J2354; J2405; J3490

== ENCOUNTER 2021-08-10 09:57 | Observation (INO) | payer OTHER, MEDICAID, SELFPAY ==
[2021-08-10] VITALS (34 sets, daily range): BP systolic 95–146; BP diastolic 58–83; PULSE 77–112; RESP 1–28; TEMP 36.3–37.4; O2SAT 94–99
--- NOTE | 2021-08-10 10:00 | RT.EKG_ITS ---
APPROVED REPORT Exam: Resting ECG Reason for Exam: weakness Patient Location: E HR:81 bpm ECG Measurements Heart Rate 81 AXIS [place] 168 P 24 QRSd 102 QRS 7 QT 370 T 12 QTc 430 Conclusion Sinus rhythm...normal P axis, V-rate 60- 99 Low voltage, precordial leads...precordial leads <1.0mV Physician: no changes, no stemi
--- NOTE | 2021-08-10 10:15 | DI.CT_ITS ---
Exam(s) CT THORAX ABD/PEL CTA EXAM: CT THORAX ABD/PEL CTA CLINICAL HISTORY: weakness, HCC hx, portal vein thrombosis hx,. TECHNIQUE: Imaging Protocol: Axial computed tomography images with coronal and sagittal reformatted images were created and reviewed CONTRAST MATERIAL: Intravenous: Omnipaque 350 Contrast volume:100 ml Oral: None COMPARISON: CT CT ABDOMEN W from 06/16/[address] ABDOMEN PELVIS W from 07/09/2021 FINDINGS: AORTA: The aortic arch anatomy is conventional. No significant dilatation nor dissection of the asce nding thoracic aorta, aortic arch and descending thoracic aorta. The abdominal aorta is not enlarged and appears unremarkable. The aortic bifurcation is patent without significant stenosis. Common il iac arteries are patent, nonstenotic and nonaneurysmal as are the external iliac arteries bilaterally . Common femoral arteries are unremarkable. Both internal iliac arteries are patent. Visualized pr oximal SFA arteries are patent CHEST: Evaluation somewhat blurred by motion artifact. LUNGS: Mild increased markings in the right lung but no confluent infiltrates in either lung field an d there are no pleural effusions. No significant focal findings in the trachea and mainstem bronchi. . MEDIASTINUM: There is no hilar nor mediastinal adenopathy. Visualized thyroid unremarkable. CARDIAC: Heart size is normal. There is no pericardial effusion. AORTA: Caliber of the thoracic aorta is within normal limits.There is no evidence of aortic dissectio n. ABDOMEN: There is no evidence of abdominal aortic aneurysm nor dissection.There is no aneurysmal dilatation of the common iliac arteries.The celiac and superior mesenteric arteries are patent. There is a moderate amount of ascites. This has increased when compared to the amount of ascites on the prior CT scan of 07/09/2021. LIVER: Cirrhotic appearing liver is again noted. No discrete focal hepatic lesions evident. GALLBLADDER/BILIARY: No calcified gallstones seen. Some fluid around the gallbladder is most probabl y related to the ascites, more so than intrinsic acute gallbladder pathology. CBD is not dilated. PANCREAS: No evidence of pancreatic mass nor dilatation of the pancreatic duct. SPLEEN: Splenomegaly is again noted. There are no distinct intrasplenic lesions. Splenic and portal veins are patent. ADRENALS: There are no significant adrenal masses. KIDNEYS: No cysts evident. No calculi nor hydronephrosis. No solid renal masses. ABDOMINAL AORTA: The abdominal aorta is not enlarged. LYMPH NODES: There is no retroperitoneal nor para-aortic adenopathy. No obvious mesenteric masses. ABDOMINAL WALL: No anterior abdominal wall umbilical hernia again noted. This contains bowel loop bu t there does not appear to be obvious obstruction at this level. GI: There is no evidence of bowel obstruction, free air, nor abscess. PELVIS: LYMPH NODES: There is no intrapelvic nor inguinal adenopathy. GI: The appendix is difficult to identify is a separate structure. No evidence of obvious acute appe ndicitis.No evidence of sigmoid diverticulitis. URINARY BLADDER: Bladder is not distended. Luminal sesamoid is difficult because of beam hardening a rtifact from left hip prosthesis. REPRODUCTIVE: Prostate not enlarged. OSSEOUS: Left hip prosthesis noted. No fractures. No significant osseous lesions. IMPRESSION: 1. No significant aortic findings. Aortoiliac arterial segments are also unremarkable. 2. No new intrathoracic findings. 3. Increasing ascites. Cirrhotic liver and splenomegaly. RADIATION DOSE DELIVERED: 1,461.97mGy.cm Total DLP DATA REPOSITORY: All CT scans at this facility are submitted to the National Radiology Data Registry (NRDR) Dose Index Registry (DIR) with the [employer] ([employer]). RADIATION OPTIMIZATION: All CT scans at this facility use at least one of these dose optimization te chniques: automated exposure control; mA and/or kV adjustment per patient size (includes targeted exa ms where dose is matched to clinical indication); or iterative reconstruction.
--- NOTE | 2021-08-10 10:15 | DI.CT_ITS ---
Exam(s) CT HEAD WO EXAM: CT HEAD WO CLINICAL HISTORY: confusion, hallucinating. TECHNIQUE: Imaging Protocol: Axial computed tomography images with coronal and sagittal reformatted images were created and reviewed COMPARISON: CT FACIAL WITHOUT CONTRAST from 07/16/2008 FINDINGS: There are no skull fractures nor fluid in the visualized paranasal sinuses. There is no evidence of intracranial hemorrhage, mass effect, or shift of midline structures. There are no extra-axial fluid collections. The ventricles are not enlarged or shifted and there is no blo od within the ventricular system nor within the basal cisterns. IMPRESSION: No acute intracranial findings on this noninfused CT scan of the brain. RADIATION DOSE DELIVERED: 1,128.14mGy.cm Total DLP DATA REPOSITORY: All CT scans at this facility are submitted to the National Radiology Data Registry (NRDR) Dose Index Registry (DIR) with the [employer] (ACR). RADIATION OPTIMIZATION: All CT scans at this facility use at least one of these dose optimization te chniques: automated exposure control; mA and/or kV adjustment per patient size (includes targeted exa ms where dose is matched to clinical indication); or iterative reconstruction.
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
[2021-08-10 10:43] LABS: Lactate 1.6 mmol/L (0.6-1.4)
[2021-08-10 10:46] LABS: Abs Immature Grans 0.02 10^3/uL (0.0-0.06); Absolute Basophil Count 0.03 10^3/uL (0.0-0.2); Absolute Eosinophil Count 0.11 10^3/uL (0.0-0.7); Absolute Lymphocyte Count 0.19 10^3/uL (1.2-3.4); Absolute Monocyte Count 0.44 10^3/uL (0.1-0.8); Absolute Neutrophil Count 3.06 10^3/uL (1.2-6.7); Basophils % 0.8; Eosinophils % 2.9; HGB 10.4 g/dL (13.5-17.5); Immature Grans % 0.5; Lymphocytes % 4.9; MCH 27.4 pg (27.0-33.0); MCHC 32.5 % (32.0-36.0); MCV 84.4 fL (80-95); MPV 11.5 fL (8.0-11.0); Monocytes % 11.4; Neutrophils % 79.5; Nucleated RBC 0 %; Platelet Count 126 10^3/uL (130-400); RBC 3.79 10^6/uL (4.36-5.78); RDW 18.1 % (11.8-14.1); RDW-SD 55.9 fL; WBC 3.85 10^3/uL (4.4-10.8)
[2021-08-10 10:47] LABS: Source Nasal/Nares
[2021-08-10 10:52] LABS: Bilirubin Negative (Negative); Blood Negative (Negative); Clarity Clear (Clear); Glucose Negative (Negative); Ketones Negative (Negative); Leukocyte Esterase Negative (Negative); Nitrite Negative (Negative); Specific Gravity 1.015 (1.005-1.025); Urobilinogen >=8.0 EU/dL (Up TO 0.2); pH 7.5 (5-8)
[2021-08-10 10:58] LABS: Ammonia 64 umol/L (11-32)
[2021-08-10 11:11] LABS: ALT 172 U/L (16-63); AST 183 U/L (15-37); Albumin 2.5 g/dL (3.4-5.0); Alkaline Phosphatase 226 U/L (46-116); Anion Gap 7.5 mmol/L (3-11); BUN 11 mg/dL (7-18); Bilirubin, Total 1.1 mg/dL (0.2-1.0); CO2 25.5 mmol/L (21.0-32.0); CREATININE 0.7 mg/dL (0.70-1.30); Chloride 95 mmol/L (98-107); Glucose 140 mg/dL (74-106); Lipase 88 U/L (73-393); Magnesium 1.7 mg/dL (1.8-2.4); Potassium 4.7 mmol/L (3.5-5.1); Sodium 128 mmol/L (136-145); TSH (W/Ref FT4) 2.67 uIU/mL (0.36-3.74); Total Protein 7.2 g/dL (6.4-8.2); Troponin I < 50 ng/L (<or=60)
[2021-08-10 11:22] LABS: INR 1.3 (0.9-1.1); Prothrombin Time 12.7 sec (9.3-11.0)
[2021-08-10 11:39] LABS: COVID-19 PCR Negative (Negative)
[2021-08-10] MEDS: MORPHine 10 MG/ML VIAL 2 MG IVP (11:40)
[2021-08-10] MEDS: Normal Saline 500 ML IV (11:41)
[2021-08-10 12:00] LABS: NT-proBNP 420 pg/mL (<300)
[2021-08-10] MEDS: Omnipaque 350 MG/ML 100 ML BTL IJ (12:23)
[2021-08-10] MEDS: Diclofenac 1% Gel 100 GM TUBE TP (12:53)
[2021-08-10] MEDS: Albuterol 2.5 MG/3 ML INH SOLN VIAL UPD (13:40)
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
[2021-08-10] MEDS: Lactulose 20 GM/30 ML CUP PO (16:11)
[2021-08-10] MEDS: Nicotine 7 MG/24 HR PATCH TD (16:11)
--- NOTE | 2021-08-10 16:23 | W.PM.OP ---
Documented by User: SULEMA Macias 08/10/21 16:27 Date of service: 08/10/21 Time of Service: 16:23 Operative Note Operative Note DATE OF PROCEDURE: 08/10/21 PRE-OP DIAGNOSIS: Ascites, hepatocellular cancer POST-OP DIAGNOSIS: same SURGEON: Loretta Holloway MICROBIOLOGICAL ANALYST: Susu Bowen ANESTHESIA TYPE: Local By Surgeon (1% lidocaine) Refer to Anesthesia Record COMPLICATIONS: None Patient was transported to: no change Patient's condition: stable Procedure Description: Patient was in the Supine Position, with head of bed slightly elevated. Placement chosen at right lower quadrant. Ultrasound is used to localize the pocket. The area is prepped and draped in the usual sterile fashion using a ChloraPrep scrub solution. 7 cc's of 1% Lidocaine is used for local anesthetization. The abdomen is punctured and the catheter is inserted. 2000 cc of light yellow fluid is evacuated today. The catheter is removed. Pressure dressing with a band-aid is applied. The patient tolerated the procedure well without complication. Documented by User: Loretta Holloway MD 08/10/21 16:45
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
[2021-08-10] MEDS: Lidocaine 2% Jelly 11 ML SYR UR (17:05)
--- NOTE | 2021-08-10 17:43 | NUR.NOTE ---
Nursing Note: Patient asked to have all 4 side rails up. He told this nurse that he felt much safer in bed with all the rails up
[2021-08-10] MEDS: Nystatin POWDER 15 GM JAR TP (21:48)
[2021-08-10] MEDS: Propranolol 10 MG TAB PO (21:49)
[2021-08-10] MEDS: carBAMazepine 200 MG TAB PO (21:49)
[2021-08-10] MEDS: Topiramate 25 MG TAB PO (21:49)
[2021-08-10] MEDS: Gabapentin 600 MG TAB 1200 MG PO (21:49)
[2021-08-10] MEDS: Oxybutynin 5 MG TAB PO (21:49)
[2021-08-10] MEDS: rOPINIRole 1 MG TAB 1.5 MG PO (21:49)
[2021-08-11 07:08] LABS: Abs Immature Grans 0.02 10^3/uL (0.0-0.06); Absolute Basophil Count 0.04 10^3/uL (0.0-0.2); Absolute Lymphocyte Count 0.27 10^3/uL (1.2-3.4); Absolute Monocyte Count 0.47 10^3/uL (0.1-0.8); Absolute Neutrophil Count 2.82 10^3/uL (1.2-6.7); Basophils % 1.1; Eosinophils % 2.7; HCT 30.6 % (40.0-50.0); HGB 9.9 g/dL (13.5-17.5); Immature Grans % 0.5; Lymphocytes % 7.3; MCH 26.9 pg (27.0-33.0); MCHC 32.4 % (32.0-36.0); MCV 83.2 fL (80-95); MPV 11.9 fL (8.0-11.0); Monocytes % 12.6; Neutrophils % 75.8; Nucleated RBC 0 %; Platelet Count 124 10^3/uL (130-400); RBC 3.68 10^6/uL (4.36-5.78); RDW 18.1 % (11.8-14.1); RDW-SD 54.4 fL; WBC 3.72 10^3/uL (4.4-10.8)
[2021-08-11 07:23] VITALS: BP 109/73; PULSE 76; RESP 15; TEMP 36.3; O2SAT 96
[2021-08-11 07:28] LABS: ALT 162 U/L (16-63); AST 158 U/L (15-37); Albumin 2.2 g/dL (3.4-5.0); Alkaline Phosphatase 205 U/L (46-116); Anion Gap 10.9 mmol/L (3-11); BUN 12 mg/dL (7-18); Bilirubin, Total 1.1 mg/dL (0.2-1.0); CO2 24.1 mmol/L (21.0-32.0); CREATININE 0.7 mg/dL (0.70-1.30); Calcium 8.6 mg/dL (8.5-10.1); Chloride 100 mmol/L (98-107); Glucose 118 mg/dL (74-106); Magnesium 1.6 mg/dL (1.8-2.4); Potassium 4.1 mmol/L (3.5-5.1); Sodium 135 mmol/L (136-145); Total Protein 6.4 g/dL (6.4-8.2)
[2021-08-11 07:48] LABS: INR 1.3 (0.9-1.1); Prothrombin Time 12.7 sec (9.3-11.0)
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
[2021-08-11] MEDS: Tamsulosin 0.4 MG CAPCR 0.8 MG PO (09:26)
[2021-08-11] MEDS: Topiramate 25 MG TAB PO ×2 (09:26→20:10)
[2021-08-11] MEDS: Gabapentin 600 MG TAB 1200 MG PO ×2 (09:27→20:10)
[2021-08-11] MEDS: Pantoprazole 40 MG TABCR PO (09:27)
[2021-08-11] MEDS: Propranolol 10 MG TAB PO ×2 (09:27→20:10)
[2021-08-11] MEDS: Oxybutynin 5 MG TAB PO ×2 (09:27→20:10)
[2021-08-11] MEDS: carBAMazepine 200 MG TAB PO ×2 (09:28→20:09)
[2021-08-11] MEDS: Multivitamin TAB 1 TAB PO (09:28)
[2021-08-11] MEDS: Lisinopril 5 MG TAB 2.5 MG PO (09:28)
[2021-08-11] MEDS: Citalopram 20 MG TAB PO (09:28)
[2021-08-11] MEDS: Atorvastatin 40 MG TAB PO (09:29)
[2021-08-11] MEDS: Lactulose 20 GM/30 ML CUP PO ×2 (09:29→16:18)
[2021-08-11] MEDS: Magnesium Gluconate 500 MG TAB PO (09:30)
[2021-08-11] MEDS: Nystatin POWDER 15 GM JAR TP ×2 (09:31→20:10)
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
--- NOTE | 2021-08-11 11:18 | CMPROGNOTE_ITS ---
- If Service Date Differs Date of service: 08/11/21 Time of Service: 11:18 Care Management Progress Note S/O: Darryl was sitting up in his chair when CM met with him. He stated that he is very tired today, and is hoping to have a nap soon. He reported that he would like to go to short term rehab to gain strength, as he has been falling out of bed at home, and feels that he is having a hard time managing. He was evaluated by PT today, who reported that he did very well, and recommended PT. Darryl stated that he is ok with returning home if he has some support. CM will continue to follow. A: Darryl is a 50 year old male admitted to [facility] on 08/10/21 with hepatic encephalopathy. P: Darryl may require short term rehab prior to returning home. CM will send referrals at his request. He will likely be transported via family facility w/c van. He will follow up with his PCP and discharge plan of care. CM will continue to follow.
--- NOTE | 2021-08-11 14:00 | W.PM.PROGNOT ---
Date of Service Date of service: 08/11/21 Time of Service: 14:00 Assessment and Plan Assessment and plan (1) Ascites: Status: Acute Assessment and plan: s/p paracentesis of 2L of light yellow fluid removed. No evidence of SBP Start Rifaximin 550mg BID (2) Acute hepatic encephalopathy: Status: Acute Assessment and plan: Now on lactulose 20mg po BID. Mentation has improved; at baseline. Will continue lactulose and adjust dosage if needed. (3) Cancer, hepatocellular: Status: Acute Assessment and plan: Has received palliative radiation tx. Palliative care involved. (4) Portal hypertension with esophageal varices: Status: Chronic Assessment and plan: No bleeding noted; no hemetemesis, melena. (5) Type 2 diabetes mellitus: Status: Chronic Assessment and plan: Not requiring insulin Monitor glucose. May need diabetic diet. Qualifiers: Diabetes mellitus [facility] insulin use: unspecified buttermaker insulin use status Diabetes mellitus complication status: with other specified complication Qualified Code(s): E11.69 - Type 2 diabetes mellitus with other specified complication (6) Discharge planning issues: Status: Acute Assessment and plan: Pt had requested d/c to SNF for PT. However, he walked in hallway with PT, standby assist only, and did well. His main concern is making it to the toilet. Care managment working on a bedside commode for his home use. Likely home tomorrow with nursing and PT. Subjective Subjective Patient reports: no new complaints, feels better and diarrhea (on lactulose); denies nausea, vomiting or shortness of breath Exam Const General: cooperative Nutritional Appearance: obese Orientation: alert and oriented x3 Eyes General: appearance normal, both eyes and all related structures Sclera: sclerae normal Neck Neck: no JVD Resp Effort & Inspection: normal respiratory effort Auscultation: clear to auscultation bilaterally Cardio Rate: regular rate Rhythm: regular rhythm Heart Sounds: S1 normal and S2 normal GI Inspection: large pannus Palpation: soft and nontender Percussion: fluid wave Auscultation: normal bowel sounds Skin General skin exam: no rashes or lesions noted Neuro General: patient awake, moves all extremities and patient confused Cranial Nerves: facial strength normal Extrem General: no calf tenderness and edema Laterality: bilateral Objective Last Vital Signs Temp 36.3 C L 08/11/21 07:23 Pulse 76 08/11/21 07:23 Resp 15 08/11/21 07:23 BP 109/73 08/11/21 07:23 Pulse Ox 96 08/11/21 07:23 Laboratory Results - last 24 hr 08/11/21 08/11/21 08/11/21 06:11 06:11 06:11 WBC 3.72 L RBC 3.68 L Hgb 9.9 L Hct 30.6 L MCV 83.2 MCH 26.9 L MCHC 32.4 RDW 18.1 H Plt Count 124 L MPV 11.9 H Immature Gran % 0.5 Neutrophils % 75.8 Lymphocytes % 7.3 Monocytes % 12.6 Eosinophils % 2.7 Basophils % 1.1 Nucleated RBC % 0 Absolute Neutrophils 2.82 Absolute Lymphocytes 0.27 L Absolute Monocytes 0.47 Absolute Eosinophils 0.10 Absolute Basophils 0.04 PT 12.7 H INR 1.3 H Sodium 135 L Potassium 4.1 Chloride 100 Carbon Dioxide 24.1 Anion Gap 10.9 BUN 12 Creatinine 0.7 Estimated GFR/1.73 m2 >= 60.00 Glucose 118 H Calcium 8.6 Magnesium 1.6 L Total Bilirubin 1.1 H AST 158 H ALT 162 H Alkaline Phosphatase 205 H Total Protein 6.4 Albumin 2.2 L
[2021-08-11] MEDS: Spironolactone 50 MG TAB PO (14:09)
--- NOTE | 2021-08-11 14:16 | PT.INTREAT ---
Date of service: 08/11/21 Time of Service: 14:16 PT Notes Visit Reasons: Hepatic Encephalopathy Physical Therapy Inpatient Treatment Note Date: 08/11/2021 Precautions: Fall. Standard. Activity as tolerated. Subjective: Agreed to a second session this afternoon. Amenable to having PT work with strengthening and then go to outpatient PT afterwards. Objective: General Observation: Supine in bed. Obese. Mental Status: Alert and oriented as to person, place, time, and purpose. Able to pay attention, focus, and respond appropriately. Pain: 2-3/10 in B feet Bed Mobility/Transfers: Sit to stand with stand by assist Stand to sit with stand by assist Bed to reclining chair with stand by assist Reclining chair to bed with stand by assist Gait: Instructed patient with level surface ambulation of 250 feet requiring stand by assist. Amy decreased. Mild SOB.? Complained of pain in B feet at 2-3/10 level. THERA EX: Initiated seated level exercises as documented in the exercise sheet. Balance: Static Sitting: Normal Dynamic Sitting: Good Static Standing: Good Dynamic Standing: Fair Assessment: Required one seated rest for the afternoon walk. Darryl requires stand by assist for all transfer and ambulation task performance and needs the W for support and fall risk reduction.? He will benefit from PT services for continued strengthening and mobility ADL progression.? May consider out patient PT once discharged from in order to achieve community ambulation without AD per patient's goal. DISCHARGE RECOMMENDATIONS: [] ? Home with no services [] [X] ? Home with services.? Patient will benefit from home health PT services in order to progress mobility level using least restrictive assistive ambulatory device, assess home safety, identify additional equipment needs, and establish a functional maintenance program that will increase ability of patient to remain at home. [] ? Home with outpatient PT [] [] ? SNF for continued rehabilitation [] [] ? Jail Care [] [] ? SNF versus LTC based on ability to participate and progress [] TREATMENT CODE/TIME: 67814 x 15 minutes, 88791 x 9 minutes beginning at 14:16 PM.
--- NOTE | 2021-08-11 15:38 | CHAPLAIN ---
Darryl was resting in bed when I visited. He asked me when services were held here and I explained that we don't have services here but chaplains are available 22/01. He shared some personal history. He lives in [facility] and has been in touch with family by phone and visits.
[2021-08-11 15:45] VITALS: BP 108/77; PULSE 65; RESP 21; TEMP 36.4; O2SAT 97
[2021-08-11] MEDS: Nicotine 7 MG/24 HR PATCH TD (16:16)
[2021-08-11] MEDS: Insulin Aspart 300 UNITS/3 ML PEN SC (17:34)
[2021-08-11] MEDS: Rifaximin 550 MG TAB PO (20:10)
[2021-08-11] MEDS: rOPINIRole 1 MG TAB 1.5 MG PO (21:13)
[2021-08-11 23:20] VITALS: BP 113/72; PULSE 70; RESP 21; TEMP 35.8; O2SAT 97
[2021-08-12 07:31] VITALS: BP 114/77; PULSE 74; RESP 12; TEMP 36.8; O2SAT 97
[2021-08-12] MEDS: Pantoprazole 40 MG TABCR PO (09:36)
[2021-08-12] MEDS: Tamsulosin 0.4 MG CAPCR 0.8 MG PO (09:36)
[2021-08-12] MEDS: Propranolol 10 MG TAB PO (09:36)
[2021-08-12] MEDS: Rifaximin 550 MG TAB PO (09:36)
[2021-08-12] MEDS: Spironolactone 50 MG TAB PO (09:36)
[2021-08-12] MEDS: Magnesium Gluconate 500 MG TAB PO (09:37)
[2021-08-12] MEDS: Topiramate 25 MG TAB PO (09:37)
[2021-08-12] MEDS: carBAMazepine 200 MG TAB PO (09:37)
[2021-08-12] MEDS: Lisinopril 5 MG TAB 2.5 MG PO (09:37)
[2021-08-12] MEDS: Citalopram 20 MG TAB PO (09:38)
[2021-08-12] MEDS: Multivitamin TAB 1 TAB PO (09:38)
[2021-08-12] MEDS: Gabapentin 600 MG TAB 1200 MG PO (09:38)
[2021-08-12] MEDS: Lactulose 20 GM/30 ML CUP PO (09:38)
[2021-08-12] MEDS: Oxybutynin 5 MG TAB PO (09:38)
[2021-08-12] MEDS: Atorvastatin 40 MG TAB PO (09:38)
[2021-08-12] MEDS: Nystatin POWDER 15 GM JAR TP (09:39)
[2021-08-12] MEDS: Insulin Aspart 300 UNITS/3 ML PEN SC (09:39)
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
--- NOTE | 2021-08-12 13:05 | PDOC.HHF2F ---
Home Health Certification Home Health Certification: 1. Encounter Date and Reason I certify that Darryl Ahuja Jr was seen by Som Juarez MD on 08/12/21 and that I had a [id number] encounter with this patient that meets the physician face to face encounter requirements. 2. Clinical Findings Supporting Skilled Need and Homebound Status I certify that home health services are medically necessary, include either intermittent care home and/or physical/speech therapy, and that this patient is homebound in that absences from the home require considerable and taxing effort and are infrequent or of short duration, or are attributable to the need to receive medical care. [X] (a) Attached documentation from encounter provides clinical findings supporting skilled need and homebound status (including what assistance patient requires to leave the home). The encounter with the patient was in whole, or in part, for the following medical condition, which is the primary reason for home health care: Hepatic Encephalopathy Half-Way:Monitor medications, chronic conditions. Physical Therapy:Occupational Therapy: Evaluate and treat generalized weakness. Assist with improving ability to perform ADLs. Speech Therapy: VETERINARY INSPECTOR: Assist with obtaining community services, monitoring for mood disturbances. Homebound: Poor endurance requiring assistance by another person outside of the home. 3. Certification and Authentication I certify that I composed the above information based on my clinical judgement relating to this patient's medical condition and, if applicable, clinical findings communicated to me by the NPP or inpatient physician who performed the Home Health Referral. All further orders will be obtained through Stephany Kline (Community Based Physician - PCP)
--- NOTE | 2021-08-12 13:53 | PDOC.CMDIS ---
- If Service Date Differs Date of service: 08/12/21 Time of Service: 13:53 LACE Index Scoring Tool - Questions: Length of Stay (in days): 2 Acuity (Admit via E.D.?): Yes Comorbidities: Diabetes w/o Complication, Any Tumor E.D. Visits: 3 - Answers: Total Score: 11 Risk of Readmission: High Risk Care Management Discharge Reason for Hospitalization: Hepatic encephalopathy. Discharge Plan: Darryl will return home today with new orders for HH RN, PT, OT, POLITICAL REPORTER. He will be followed closely by Palliative care. His will drive him home via private vehicle. He will follow up with his PCP and discharge plan of care. Patient/Family Education Needs: Review discharge instructions regarding activity levels and medications, discussion of self care needs including ask me three and goals of care. Services Needed at Discharge: Home Health Care Services (HH RN, PT, OT, POLITICAL REPORTER)
--- NOTE | 2021-08-12 14:46 | CHAPLAIN ---
Darryl invited me to sit down for a conversation with him. He told me about his niece's four daughters and how they motivate him to want to feel better. There are four girls, one with significant disabilities. 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 Darryl expected his to visit today. He was discharged this afternoon to go home with Home Health and Palliative Care services.
== END 2021-08-12 13:30 | disposition home health service (06) | DRG 435 ==
LOC: ER 14:37 → MS 08-11 09:04
PROVIDERS: Admitting Provider Family Medicine; Emergency Provider Physician Assistant; PCP Nurse Practitioner Family; Visit Provider Family Medicine
DX: C22.0 Liver cell carcinoma (principal); K72.00 Acute and subacute hepatic failure without coma; R18.8 Other ascites; Z68.43 Body mass index [BMI] 50.0-59.9, adult; I85.10 Secondary esophageal varices without bleeding; K76.6 Portal hypertension; R44.3 Hallucinations, unspecified; Z87.820 Personal history of traumatic brain injury; R53.1 Weakness; I10 Essential (primary) hypertension; G47.33 Obstructive sleep apnea (adult) (pediatric); K21.9 Gastro-esophageal reflux disease without esophagitis; K74.69 Other cirrhosis of liver; Z79.891 Long term (current) use of opiate analgesic; K59.00 Constipation, unspecified; E83.42 Hypomagnesemia; F32.A Depression, unspecified; J45.909 Unspecified asthma, uncomplicated; E78.5 Hyperlipidemia, unspecified; N40.0 Benign prostatic hyperplasia without lower urinary tract symptoms; G25.81 Restless legs syndrome; G43.909 Migraine, unspecified, not intractable, without status migrainosus; G47.00 Insomnia, unspecified; M79.89 Other specified soft tissue disorders; M54.9 Dorsalgia, unspecified; E66.01 Morbid (severe) obesity due to excess calories; Z87.891 Personal history of nicotine dependence; E11.69 Type 2 diabetes mellitus with other specified complication; Z91.81 History of falling; Z79.84 Long term (current) use of oral hypoglycemic drugs
CPT/HCPCS: 49082; 36415; 71275; 74177; 80053; 83690; 87635; 93005; 94640; 96361; 96374; 97110; 97162; 97530; 99213; 99221; 99285; 70450; 81003; 82140; 83605; 83735; 83880; 84443; 84484; 85025; 85610; 93010; 99217; 99220; 99223; 99226; 99233; 99239; G0378; J2270; J3490; J7613

== ENCOUNTER → 2021-09-07 13:59 | Outpatient (BNVA) | payer OTHER, MEDICAID, SELFPAY | PROVIDERS: PCP Nurse Practitioner Family; Referring Provider Nurse Practitioner Family; Visit Provider Surgery | DX: R18.8 Other ascites (principal) | CPT/HCPCS: 49082 ==

== ENCOUNTER 2021-09-08 13:47 | Inpatient (IN) | payer OTHER, SELFPAY ==
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
[2021-09-08] MEDS: Lactulose 20 GM/30 ML CUP 30 GM PO ×2 (15:58→20:13)
[2021-09-08] MEDS: Polyethylene Glycol 3350 17 GM PACKET PO (15:58)
[2021-09-08] MEDS: fentaNYL 25 MCG PATCH TD (16:40)
[2021-09-08 16:43] VITALS: BP 128/88; PULSE 88; RESP 20; TEMP 37; O2SAT 94
--- NOTE | 2021-09-08 17:10 | CHAPLAIN ---
I received a referral from Dr. Gray to visit Darryl. He is hospice patient, here for pain control, I believe. His , Reena, and his mother are with him, and will be staying the night, they said. A sister and niece will be here in the morning as Reena as an appointment at [facility]. Darryl was getting settled with in with his nurse, VIC Menjivar, when I visited. We remembered each other from a prior admission (two rooms down, Darryl said). Darryl is comfortable for now. He asked for a large print bible and a shocking pink prayer shawl. I was able to provide both. I offered a prayer with Darryl before I left and let him know that avionics supervisor is available 22/01. I will visit again tomorrow.
[2021-09-08] MEDS: Promethazine 25 MG TAB PO (17:35)
[2021-09-08 17:46] LABS: Source Nasal/Nares
[2021-09-08 18:23] LABS: COVID-19 PCR Negative (Negative)
[2021-09-08] MEDS: LORazepam 1 MG TAB PO (20:11)
[2021-09-08] MEDS: Docusate Sodium 100 MG CAP PO (20:11)
[2021-09-08] MEDS: carBAMazepine 200 MG TAB PO (20:11)
[2021-09-08] MEDS: Acetaminophen 650 MG SUPP PR (20:13)
[2021-09-08] MEDS: Senna TAB PO (20:30)
[2021-09-08] MEDS: rOPINIRole 0.5 MG TAB 1.5 MG PO (20:31)
[2021-09-09] MEDS: Acetaminophen 650 MG SUPP PR ×2 (00:42→20:13)
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
[2021-09-09] MEDS: Scopolamine 1 MG/3 DAYS PATCH TD (11:20)
[2021-09-09] MEDS: Lactulose 20 GM/30 ML CUP 30 GM PO ×3 (11:20→20:12)
[2021-09-09] MEDS: Spironolactone 50 MG TAB 100 MG PO (11:21)
[2021-09-09] MEDS: carBAMazepine 200 MG TAB PO ×2 (11:21→20:13)
[2021-09-09] MEDS: Docusate Sodium 100 MG CAP PO ×2 (11:21→20:13)
[2021-09-09] MEDS: Pantoprazole 40 MG TABCR PO (11:21)
[2021-09-09] MEDS: fentaNYL 50 MCG PATCH TD (11:21)
[2021-09-09] MEDS: Tamsulosin 0.4 MG CAPCR 0.8 MG PO (11:21)
[2021-09-09] MEDS: Normal Saline Flush 10 ML SYR (11:54)
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
--- NOTE | 2021-09-09 13:50 | CHAPLAIN ---
I visited with Darryl this morning. He was uncomfortable because of his pain level and said she didn't sleep well last night. His nurse, VIC Rendon, was getting ready to increase his dosage of pain med. Darryl's cousin Reena, and her daughter, were staying with Darryl while Darryl's , Reena, was at [facility] [place]. Darryl didn't not feel up to talking a lot, but I will visit again this afternoon to see if he's more comfortable and interested in a conversation.
--- NOTE | 2021-09-09 17:17 | CMPROGNOTE_ITS ---
- If Service Date Differs Date of service: 09/09/21 Time of Service: 17:17 Care Management Progress Note S/O: Darryl is asleep when CM comes to meet with him. His , Reena, and her mother are present in the room. Reena advises that Darryl was restless and in pain earlier in the day and she is thankful that his pain is finally under control and he is getting some sleep. She talks about the difficulties caring for Darryl at home but says she has lots of family supports and the hospice/home health staff have been great. A: Darryl is a 50 year old male admitted to [facility] on 09/08/2021 for hospice symptom management. P: Darryl will remain at [facility] through the weekend. He will undergo a paracent esis procedure on Sunday and will likely return home on Sunday. CM will continue to follow.
[2021-09-09] MEDS: rOPINIRole 0.5 MG TAB 1.5 MG PO (21:25)
[2021-09-09] MEDS: Senna TAB PO (21:26)
[2021-09-10 07:25] VITALS: BP 103/66; PULSE 87; RESP 21; TEMP 36.7; O2SAT 96
[2021-09-10] MEDS: Pantoprazole 40 MG TABCR PO (08:54)
[2021-09-10] MEDS: carBAMazepine 200 MG TAB PO ×2 (08:54→20:32)
[2021-09-10] MEDS: Spironolactone 50 MG TAB 100 MG PO (08:54)
[2021-09-10] MEDS: Docusate Sodium 100 MG CAP PO ×2 (08:54→20:32)
[2021-09-10] MEDS: Lactulose 20 GM/30 ML CUP 30 GM PO (08:54)
[2021-09-10] MEDS: Tamsulosin 0.4 MG CAPCR 0.8 MG PO (08:54)
[2021-09-10] MEDS: Nicotine 21 MG/24 HR PATCH TD (11:48)
[2021-09-10] MEDS: Scopolamine 1 MG/3 DAYS PATCH TD (11:48)
--- NOTE | 2021-09-10 12:40 | PGE_ITS ---
Date of Service Date of service: 09/10/21 Time of Service: 11:15 Assessment and Plan Assessment and plan (1) Malignant ascites: Status: Acute Assessment and plan: Hx 6L fluid drained by surgery ... he is scheduled to be re-evaluated by surg team 09/12/21. His ascites seems to be returning .. per exam and pt report. (2) Cancer related pain: Status: Acute Assessment and plan: As of 09/10/21 .. Tyl IL discontinued. Adding Tyl PO, and OK with Tyl+Diphen qHS as he regularly uses TylPM @ home. FENTANYL increased by 25mcg due to Morphine 30mg since yesterday and his admission to pain and increasing ascites, with paracentesis over a day away. The last Morphine 10mg dose (~ 3-4pm) did not seem to relieve pain, although he managed well and remained pleasant/appreciative. Per last note: Increasing his fentanyl patch from 25 mcg to 50 mcg. Trying to find the pain medication least likely to add mental clouding. Also ordered morphine for breakthrough pain, though I am worried this was adding to his confusion. To be monitored by nursing. (3) Anticipatory anxiety: Status: Acute Assessment and plan: Darryl remains worried about dying. Clinical Cytogeneticist Scientist visited him yesterday. (4) Hepatic encephalopathy: Status: Acute Assessment and plan: Seen @ bedside (he was in his armchair with legs elevated) .. he was alert and seemed clear. Per nursing discussion this morning (09/10), he is awake, alert, cognizant. I agree ... and his seems to have a good awareness for his cognition vs anxiety vs pain (Hx TBI has made him rely on her for explanations). His , Reena, felt that he was doing well today in terms of attention and cognition, but that anxiety was growing.. Lactulose re-started for the evening dose 2' no BM today. [ ] review PT eval/education (5) Hospice care patient: Status: Acute Assessment and plan: Continuing with hospice care hospitalization for symptom management. Dr Cesar covering 09/09 5 pm through 09/[address] Thomas covering 09/12 7 am through 09/13 7 am. Sarai Barclay, CHEO covering 09/13 (expected date of discharge, though may be sooner if he improves). (6) Decreased activities of daily living (ADL): Status: Acute Assessment and plan: Worsening ... hospitalized for symptom management (7) Cancer, hepatocellular: Status: Acute Assessment and plan: Advanced, Dx for hospice and active symptom management.. Per last note, Darryl told his that he thinks he will this month. He wants to go [employer] fishing one more time. [employer] season doesn't open until 10/14. It remains unclear whether he will live long enough to meet that goal. (8) Cirrhosis: Status: Acute Assessment and plan: Advanced, non-compensated, with ascites and encephalopathy. Symptom management. Qualifiers: Ascites presence: unspecified Hepatic cirrhosis type: unspecified hepatic cirrhosis Qualified Code(s): K74.60 - Unspecified cirrhosis of liver (9) Ascites: Status: Acute Assessment and plan: Hx 6 L drained off ~ 09/07/21 by surgery team .. monitoring [ ] Appreciate re-evaluation by Dr Holloway ... [ ] paracentesis planned for 09/12/21. (10) Constipation: Status: Acute Assessment and plan: Hx constipation (no BM x5 days prior to admission), now multiple BMs with diarrhea 2' lactulose Nursg reported 8-9 BMs overnight Lactulose Rx PRN, on HOLD (~ noon dose) Qualifiers: Constipation type: unspecified constipation type Qualified Code(s): K59.00 - Constipation, unspecified (11) Hematuria: Status: Acute Assessment and plan: New olmstead catheter placed @ admission, with tubing and bag.. BUT HE REQUESTED D/C OVERNIGHT DUE TO DISCOMFORT. Per last note: Hematuria could be due to thrombocytopenia from his liver cancer OR he could be brewing a UTI. [ ] UA PRN (12) Weakness: Status: Acute Assessment and plan: PT ordered [ ] as consult to teach family safe transfers. Nursing reported that he can walk from his bed to the toilet (about 10-15 feet) with his walker. <--- He and his both feel ambulation is helpful, but that commode may be necessary 2' weakness. I also encouraged him to stay as active as he can for now. (13) Depression: Status: Chronic Assessment and plan: Hx life long depression. Qualifiers: Depression Type: unspecified Qualified Code(s): F32.A - Depression, unspecified (14) History of traumatic brain injury: Status: Resolved Assessment and plan: Occured in 1990. Relies on his Reena for help with decision making. (15) Smoking hx: Status: Acute Assessment and plan: Nicotine withdrawal, with Adrián PATCH requested by nursing, 09/10/21, [ ] agree, Rx. Exam Narrative Exam Narrative: Seen in armchair, Darryl is obese, with edematous legs (L>R) and enlarged abdomen per his , Reena. His abdomen is moderately firm, tender on left lower region, but not hard/swollen as it could be [and as described as it has been pre-tap). His left inguinal fold is red/tender .. no sign of rochelle infection, but recommending thick application of barrier cream [his and I applied a layer]. He is pleasant, but tired and worried. He appreciates the attention and care of staff and the hospice team. HEENT: Normocephalic. Good eye contact, anicteric. Hearing intact. ABD: Mild-Mod firm with palpation, Tender @ RLQ, RUQ. SKIN: Pallor, bradley face.. erythemetous, sore left inguinal fold, with heavy pannus. : Olmstead removed overnight due to discomfort. Ext: Edemetous to thighs, +2-3 edema bilateral. Left>Right, which is his baseline (trial ANDREW compression) .. He needed assistance repositioning left leg (elevated @ armchair footrest). Neuro: Alert, welcoming .. recognized that I was hospice doc listed on whiteboard .. Poor historian, but looked to his , aware of cognition loss 2' TBI. Admits to anxiety .. and increasing pain. Worried about increasing ascites, but appreciative of surgery plan for tap on Sunday. He and his are hoping [planning] to go home Sunday after the paracentesis, although they are aware that pain mgmt is affected by the ascites, so inc/plateau may occur. Both agreed to Fentanyl increase. Both observed anxiety relieved with lorazepam (1mg) within the hour, before I left. They started dinner. I s/w nursing and gave verbal orders, @ 11:15am. I s/w nursing and patient/, @ 4-5:30 pm. Objective Last Vital Signs Temp 98.1 F 09/10/21 07:25 Pulse 87 03/12/22 07:25 Resp 21 09/10/21 07:25 BP 103/66 09/10/21 07:25 Pulse Ox 96 09/10/21 07:25 Reviewed Pertinent PMH: Yes Objective Narrative Objective Narrative: Symptom Management (Pain, Confusion, Diarrhea) Medication Review PAWSS Pt Consumed Any Amount of Alcohol Within the Last 30 days OR had positive BRI Upon Admission: No
[2021-09-10] MEDS: LORazepam 1 MG TAB PO (16:31)
[2021-09-10] MEDS: Senna TAB PO (21:40)
[2021-09-10] MEDS: rOPINIRole 0.5 MG TAB 1.5 MG PO (21:40)
[2021-09-10] MEDS: fentaNYL 25 MCG PATCH TD (21:42)
[2021-09-11] MEDS: Nicotine 21 MG/24 HR PATCH TD (07:49)
[2021-09-11] MEDS: Lactulose 20 GM/30 ML CUP 30 GM PO (07:49)
[2021-09-11] MEDS: Tamsulosin 0.4 MG CAPCR 0.8 MG PO (07:50)
[2021-09-11] MEDS: Spironolactone 50 MG TAB 100 MG PO (07:50)
[2021-09-11] MEDS: Docusate Sodium 100 MG CAP PO ×2 (07:50→20:11)
[2021-09-11] MEDS: carBAMazepine 200 MG TAB PO ×2 (07:51→20:11)
[2021-09-11] MEDS: Pantoprazole 40 MG TABCR PO (07:51)
[2021-09-11] MEDS: Promethazine 25 MG TAB PO (08:37)
[2021-09-11 09:15] VITALS: BP 117/75; PULSE 90; RESP 20; TEMP 36.4; O2SAT 97
[2021-09-11] MEDS: Ondansetron O.D.T. 4 MG TABEF PO (09:28)
[2021-09-11] MEDS: LORazepam 1 MG TAB PO (17:26)
[2021-09-11] MEDS: rOPINIRole 0.5 MG TAB 1.5 MG PO (22:16)
--- NOTE | 2021-09-11 22:17 | W.PM.PROGNOT ---
Date of Service Date of service: 09/11/21 Time of Service: 17:00 Assessment and Plan Assessment and plan (1) Malignant ascites: Status: Acute Assessment and plan: Hx 6L fluid drained by surgery last week... he is scheduled to be re-evaluated by surg team 09/12/21. His ascites is returning .. per exam and pt report. He is clearly uncomfortable and his abdomen larger (2) Cancer related pain: Status: Acute Assessment and plan: As of 09/11/21 .. Tyl PO, and Tyl+Diphen qHS (he regularly uses TylPM @ home). FENTANYL @ 75mcg (50+25mcg). Lactulose re-started yesterday evening, but again on hold as of this afternoon [> 4 BMs]. Ativan 2mg @ 5pm during my visit .... with planned 1-2mg this evening (10pm) .. asked for him to be awakened to take it if asleep. (3) Anticipatory anxiety: Status: Acute Assessment and plan: Anxious .. and quickly wound up when talking about going home after paracentesis, but told he may need to stay overnight afterwards for monitoring and/or possible drain placement. He nodded in agreement that it made sense, but remained anxious. (4) Hepatic encephalopathy: Status: Acute Assessment and plan: Seen walking from toilet to chair ... slow, but steady .. assistance needed getting into his chair .. more from his size than pain per observation. He is awake, alert ... and actually seems more responsive than yesterday. Again, his seems to have a good awareness for his cognition vs anxiety vs pain (Hx TBI has made him rely on her for explanations). His , Reena, shared his anxiety and confusion last night when he called home several times with the same questions about the apt set-up and preparations. Lactulose re-started last night .. held this afternoon. [ ] review PT eval/education (5) Hospice care patient: Status: Acute Assessment and plan: Continuing with hospice care hospitalization for symptom management. His pain seems better managed; anxiety needs monitoring; paracentesis planned. Dr Cesar covering 09/09 5 pm through 09/[address] Thomas covering 09/12 7 am through 09/13 7 am. Sarai Barclay NP covering 09/13 (expected date of discharge, though may be sooner if he improves). (6) Decreased activities of daily living (ADL): Status: Acute Assessment and plan: Worsening ... hospitalized for symptom management (7) Cancer, hepatocellular: Status: Acute Assessment and plan: Advanced, Dx for hospice and active symptom management.. Per last note, Darryl told his that he thinks he will this month. He wants to go [employer] one more time. [employer] season doesn't open until 10/14. It remains unclear whether he will live long enough to meet that goal. (8) Cirrhosis: Status: Acute Assessment and plan: Advanced, non-compensated, with ascites and encephalopathy. Symptom management. Qualifiers: Hepatic cirrhosis type: unspecified hepatic cirrhosis Ascites presence: unspecified Qualified Code(s): K74.60 - Unspecified cirrhosis of liver (9) Ascites: Status: Acute Assessment and plan: Hx 6 L drained off ~ 09/07/21 by surgery team .. monitoring [ ] Appreciate re-evaluation by Dr Holloway ... [ ] paracentesis planned for 09/12/21. (10) Constipation: Status: Acute Assessment and plan: Hx constipation (no BM x5 days prior to admission), now multiple BMs with diarrhea 2' lactulose (nursg reported 8-9 BMs overnight from Sun to Sunday). Lactulose Rx PRN, re-started Sat evening and Sunday am .. then held again .. possible dose x1 this evening (Sun, 09/11). Qualifiers: Constipation type: unspecified constipation type Qualified Code(s): K59.00 - Constipation, unspecified (11) Hematuria: Status: Acute Assessment and plan: No olmstead catheter ... urinary output difficult to gauge, but no complaints. Mild incontinence. (12) Weakness: Status: Acute Assessment and plan: PT ordered [ ] as consult to teach family safe transfers. Nursing reported that he can walk from his bed to the toilet (about 10-15 feet) with his walker. <--- He and his both feel ambulation is helpful, but that commode may be necessary 2' weakness. I also encouraged him to stay as active as he can for now. (13) Depression: Status: Chronic Assessment and plan: Hx life long depression. Qualifiers: Depression Type: unspecified Qualified Code(s): F32.A - Depression, unspecified (14) History of traumatic brain injury: Status: Resolved Assessment and plan: Occured in 1990. Relies on his Reena for help with decision making. (15) Smoking hx: Status: Acute Assessment and plan: Nicotine withdrawal, with Adrián PATCH added Sunday, 09/10. Exam Narrative Exam Narrative: I visited with Darryl and Reena this evening, as they were sitting down to eat. He was just coming out of the bathroom, assisted by two aides, but walking on his own. He needed help cleaning and to adjust himself in the chair. He was again pleasant, and welcoming. His pain seemed managed today -- per nursing, as well as his . His abdomen is clearly more swollen and firm. He is looking forward to Dr. Holloway performing a paracentesis tomorrow, 09/12/21. He thought he was going to her office; Reena and I thought it would be @ bedside. He was hoping to go home right afterwards, but his shared the fact that a drain may be under consideration which would require another night in -patient, but then for more freedom once home, as they would not have to call paramedics/fire-dept for transport help to the surgeon's offices. He seemd to understand, but became anxious .. I requested his lorazepam .. and that was also when we realized he did not ask for it last night and was calling home almost hourly, worried about the set-up of the apt for when he'd be home. I'm requesting lorazepam @ 10pm, and to awaken him to take it if need be. His legs are much improved this evening ... whether compression or diuretics or ambulation helped is unclear. His urinary output seems less per nursing, but he may be urinating with BMs. He has not complained of urinary hesitancy or difficulty .. mild incontinence per notes. HEENT: Normocephalic. Good eye contact, anicteric. Hearing intact. ABD: Mod firm with palpation, and larger than Sunday. He was not guarding, allowing for mod pressure w/o tenderness. CARD: Distant RESP: Short, but clear inspiratory breath sounds .. fatigued with attempt of deep breating and holding..but no pain/dizziness. Ext: Edemetous to knees, improved. He was able to shift/re-adjust himself in his chair for dinner. Neuro: Alert and oriented. He recognized me and knew tomorrow was Sunday, with planned paracentesis. He remains aware of cognitive/attention limitations 2' TBI and waited for his , Reena, to finish phone call before we spoke in any detail. He is worried but eager to go home .. he was appreciative of Reena and my requesting lorazepam and scheduling it for this evening as well. Fentanyl 75mcg seems to be managing pain .. paracentesis expected to relieve pain/discomfort as well, but I expect him to stay @ 75mcg @ d/c. I shared our use of Morphine 10mg IR in the hospital for breakthrough pain (vs ER + IR as she had been using), so she fouzia be sure to review meds @ discharge. I also recommended they track the PRN dosing so that we can better calculate a possible increase in Fetanyl to stay ahead of his pain. Objective Last Vital Signs Temp 97.5 F L 09/11/21 09:15 Pulse 90 09/11/21 09:15 Resp 20 09/11/21 09:15 BP 117/75 09/11/21 09:15 Pulse Ox 97 09/11/21 09:15 PAWSS Pt Consumed Any Amount of Alcohol Within the Last 30 days OR had positive BRI Upon Admission: No
--- NOTE | 2021-09-12 02:57 | NUR.NOTE ---
patient requested all four rails up as he stated he does not want to fall out of bed. all rails up at this time
--- NOTE | 2021-09-12 08:04 | W.PM.PROGNOT ---
Date of Service Date of service: 09/12/21 Time of Service: 08:04 Objective Last Vital Signs Temp 97.5 F L 09/11/21 09:15 Pulse 90 09/11/21 09:15 Resp 20 09/11/21 09:15 BP 117/75 09/11/21 09:15 Pulse Ox 97 09/11/21 09:15 PAWSS Pt Consumed Any Amount of Alcohol Within the Last 30 days OR had positive BRI Upon Admission: No
[2021-09-12] MEDS: Spironolactone 50 MG TAB 100 MG PO (10:01)
[2021-09-12] MEDS: Nicotine 21 MG/24 HR PATCH TD (10:01)
[2021-09-12] MEDS: Pantoprazole 40 MG TABCR PO (10:01)
[2021-09-12] MEDS: carBAMazepine 200 MG TAB PO (10:02)
[2021-09-12] MEDS: Tamsulosin 0.4 MG CAPCR 0.8 MG PO (10:02)
[2021-09-12] MEDS: Docusate Sodium 100 MG CAP PO (10:02)
[2021-09-12] MEDS: Lactulose 20 GM/30 ML CUP 30 GM PO ×2 (12:26→15:51)
[2021-09-12] MEDS: fentaNYL 75 MCG PATCH TD (12:26)
--- NOTE | 2021-09-12 13:01 | CMPROGNOTE_ITS ---
- If Service Date Differs Date of service: 09/12/21 Time of Service: 13:01 Care Management Progress Note S/O: Darryl was lying in bed with the head of bed elevated. He was alert and oriented and easy to engage in conversation. He was visiting with his . Darryl shares that the paracentesis today relieved his abdominal discomfort and he is more comfortable since his fentanyl patch dose was increased. He is planning on meeting with surgery today and asking if he can discharge home this after noon. CM will continue to support discharge planning needs. A: Darryl is a 50 year old male admitted to [facility] on 09/08/2021 for hospice symptom management. P: Darryl is admitted to the hospital for symptom management with paracentesis. He will likely discharge home with resumption of Hospice services on Sunday. Darryl will transport via EMS with lift assist (to be arranged by CM). CM will continue to follow.
--- NOTE | 2021-09-12 13:22 | NUR.NOTE ---
Nursing Note: Verified Patient's Fentanyl patch order and applied to the right upper chest. he refused am lactulose. Did take the 1200 dose. Bm just before Dr Duke arrived to perform the pericentisis at the bedside
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
--- NOTE | 2021-09-12 16:24 | PDOC.CMDIS ---
- If Service Date Differs Date of service: 09/12/21 Time of Service: 16:24 LACE Index Scoring Tool - Questions: Length of Stay (in days): 4 - 6 Acuity (Admit via E.D.?): Yes Comorbidities: Diabetes w/o Complication E.D. Visits: 3 - Answers: Total Score: 11 Risk of Readmission: High Risk Care Management Discharge Reason for Hospitalization: Symptom Management Discharge Plan: Discharge home with resumption of Hospice services. Transportation via EMS ([facility]) coordinated by CM. Follow up with hospice providers and discharge plan of care as prescribed. Patient/Family Education Needs: Review discharge instructions, limitations, medications and plan to follow up with community providers. ask me three. Services Needed at Discharge: Home Health Care Services (Resumption of HH and Hospice. CM notified Tony.), Transportation (via EMS ([facility]) coordinated by CM.)
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
== END 2021-09-12 17:08 | disposition home or self-care (01) | DRG 436 ==
PROVIDERS: Admitting Provider Family Medicine; PCP Nurse Practitioner Family; Visit Provider Family Medicine
DX: C22.0 Liver cell carcinoma (principal); K76.6 Portal hypertension; I85.10 Secondary esophageal varices without bleeding; R18.0 Malignant ascites; G89.3 Neoplasm related pain (acute) (chronic); K72.90 Hepatic failure, unspecified without coma; R53.1 Weakness; Z51.5 Encounter for palliative care; Z79.891 Long term (current) use of opiate analgesic; K59.00 Constipation, unspecified; E11.9 Type 2 diabetes mellitus without complications; F17.210 Nicotine dependence, cigarettes, uncomplicated; F32.9 Major depressive disorder, single episode, unspecified; I10 Essential (primary) hypertension; M54.9 Dorsalgia, unspecified; G47.00 Insomnia, unspecified; G43.909 Migraine, unspecified, not intractable, without status migrainosus; G47.33 Obstructive sleep apnea (adult) (pediatric); J45.909 Unspecified asthma, uncomplicated; G25.81 Restless legs syndrome; N40.0 Benign prostatic hyperplasia without lower urinary tract symptoms; F10.11 Alcohol abuse, in remission; F11.11 Opioid abuse, in remission; F41.9 Anxiety disorder, unspecified; K02.9 Dental caries, unspecified; R31.9 Hematuria, unspecified; Z87.820 Personal history of traumatic brain injury; E66.9 Obesity, unspecified; K70.30 Alcoholic cirrhosis of liver without ascites
CPT/HCPCS: 49082; 87635; 97162

== ENCOUNTER 2021-09-14 16:30 | Outpatient (REF) | payer MEDICARE, SELFPAY ==
[2021-09-14 18:26] LABS: TSH 3.13 uIU/mL (0.36-3.74)
== END 2021-09-14 16:31 | disposition home or self-care (01) ==
LOC: LBN 16:30
PROVIDERS: PCP Nurse Practitioner Family; Visit Provider Family Medicine
DX: R53.1 Weakness (principal); R63.4 Abnormal weight loss
CPT/HCPCS: 84443

== ENCOUNTER → 2021-09-23 13:13 | Outpatient (BNVA) | payer OTHER, MEDICAID, SELFPAY | PROVIDERS: PCP Nurse Practitioner Family; Referring Provider Nurse Practitioner Family; Visit Provider Surgery | DX: R18.0 Malignant ascites (principal) | CPT/HCPCS: 49082; 99202 ==

== ENCOUNTER 2021-09-23 14:13 | Inpatient (IN) | payer OTHER, SELFPAY ==
[2021-09-23 14:50] VITALS: BP 102/72; PULSE 94; RESP 18; TEMP 36.4; O2SAT 94
--- NOTE | 2021-09-23 15:54 | CHAPLAIN ---
I visited with Darryl shortly after he was admitted. Dr. Gray let me know he is here and said he is scared of dying. Darryl is a hospice patient and his Reena has been caring for him at home. He's been fearful of falling asleep and at home, wants his to hold his hand often, according to Dr. Gray. Darryl was admitted a few weeks ago for symptom management and that is when I met him. He seems anxious on this visit. He is talking less and at sometimes is difficult to understand, although Reena can usually understand him. Today during our conversation, Darryl also mentioned hamburgers and hot dogs, and was thinking about cookouts they have at their home. Reena said he has also been talking about his mom, who in . The family has a celebration planned for November 27 and Darryl mentioned this to me as well. I will continue to visit.
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
[2021-09-23] MEDS: LORazepam 1 MG TAB PO ×2 (17:14→22:23)
[2021-09-23] MEDS: Acetaminophen 325 MG TAB PO (17:14)
[2021-09-23] MEDS: Senna TAB 1 TAB PO (22:04)
[2021-09-23] MEDS: rOPINIRole 0.5 MG TAB 1.5 MG PO (22:04)
[2021-09-23] MEDS: Lactulose 20 GM/30 ML CUP PO (22:04)
[2021-09-24] MEDS: LORazepam 1 MG TAB PO ×6 (04:30→23:25)
[2021-09-24] MEDS: Acetaminophen 325 MG TAB PO ×2 (04:30→08:18)
[2021-09-24] MEDS: Furosemide 40 MG TAB PO (08:18)
[2021-09-24] MEDS: Senna TAB 1 TAB PO (08:18)
[2021-09-24] MEDS: Spironolactone 50 MG TAB 100 MG PO (08:18)
[2021-09-24] MEDS: Lactulose 20 GM/30 ML CUP PO ×2 (08:19→14:11)
[2021-09-24 08:32] VITALS: BP 110/76; PULSE 88; RESP 22; TEMP 35.9; O2SAT 95
--- NOTE | 2021-09-24 09:20 | PGE_ITS ---
Date of Service Date of service: 09/24/21 Time of Service: 08:30 Assessment and Plan Assessment and plan (1) Hepatic encephalopathy: Status: Acute Assessment and plan: second admission in around 2 wks for hospice symptom management w/hepatic encephalopathy as primary sxs to be controlled, pt able to take lactulose this morning, improved confusion; will order dietary consult to dilute lactulose w/OJ for improved taste and tolerance; pt voices understanding on importance of taking lactulose at home (2) Cancer, hepatocellular: Status: Acute Assessment and plan: D[place] [facility] [place], pt opted for no treatment; on hospice Dr Holloway unable to image his liver edge with her ultrasound, c/w his having a shrunken, small, cirrhotic liver. (3) Malignant ascites: Status: Acute Assessment and plan: Dr. Holloway following, approx 2 L of fluid removed prior to admission; next paracentesis 2-3wks (4) Decreased activities of daily living (ADL): Status: Acute Assessment and plan: has HH and family caregivers at home; has all equipment minus WC which has been ordered rapid decline, r/t HCC, weakness and sedentary lifestyle/obesity (5) Hospice care patient: Status: Acute Assessment and plan: hospitalized for symptom management (6) Medication nonadherence due to intolerance: Status: Acute Assessment and plan: reviewed importance of taking lactulose as Rx'd w/goal of 4 BMs/day, pt struggling w/taste of medicine, willing to trial mixed w/OJ for imporved adherence (7) Alcohol use disorder: Status: Inactive Assessment and plan: continues to engage in AA, got 18 mo medallion this week; plan to continue AA engagement, sponsor and groups to come to him moving forward (8) Nausea & vomiting: Status: Acute Assessment and plan: scopolamine patch in place, controlled at this time (9) Anticipatory anxiety: Status: Acute Assessment and plan: continues to express fear of dying; Bulk Station Operator services requested, Mitra Riley covering hospital this weekend lorazepam given this morning w/appropriate effect (10) Obstructive sleep apnea: Status: Chronic Assessment and plan: unable to wear CPAP d/t pressure creating pain in remaining teeth and causing sore; he does not have to wear CPAP at this time, may use nasal cannula PRN slept appropriate last night w/no drops in O2 sats Subjective Subjective Interval history since last seen: Mr. Andrews is feeling better compared to yesterday, was able to sleep overnight w/intermittent wakening when staff came into room, not bothersome; slept w/o O2 or CPAP, oxygen saturations appropriate; reports appetite is slightly improving, currently eating breakfast w/no issues; reports 8/10 pain, mostly in L knee and back; reports pain is worse 2/2 recent falls; continues to have anxiety over and dying, not being around for Reena and to see grandchildren grow up; has not been visited by Bulk Station Operator yet, but would like to work with them reports was able to take lactulose this morning, is struggling taking it d/t taste, would be willing to trial it mixed w/juice, aware of importance of taking medicine for mental clarity and ammonia levels; reports feels less confused today; describes intermittent stomach cramping this morning after taking lactulose, reports has moved bowels a couple of times since admit yesterday; reports is able to make it to restroom appropriately, does have commode at bedside for just in case Exam Const General: cooperative and disheveled Nutritional Appearance: obese Orientation: awake, oriented to person and confused [facility] Head: normocephalic and atraumatic Ears: hearing grossly normal bilaterally General nose exam: external nose normal and no nasal discharge Face and sinus: normal facial exam, face symmetric and dry mucous membranes Mouth: lip abnormal, malodorous breath and mouth trauma Teeth and gingiva: edentulous and poor dentition (2 remaining teeth) Eyes General: appearance normal, both eyes and all related structures Sclera: sclerae normal Neck Neck: no JVD Resp Effort & Inspection: normal respiratory effort and able to speak in complete sentences Auscultation: clear to auscultation bilaterally Cardio Rate: regular rate Rhythm: regular rhythm Heart Sounds: S1 normal and S2 normal GI Inspection: large pannus and obesity Palpation: firm, no guarding, splenomegaly, tender and ascites Auscultation: normal bowel sounds Other: dark yellow urine noted in catheter bag Skin General skin exam: no rashes or lesions noted Other: not jaundiced Neuro General: patient alert, patient awake, oriented and moves all extremities Cognition: normal cognition Speech: abnormal speech garbled (able to understand 90%) Extrem General: no calf tenderness and edema Laterality: bilateral Psych Mental Status: mental status grossly normal Mood: anxious mood (asking for his ) Affect: anxious affect Attitude: cooperative Thought Process: impoverished and perseverating Insight: limited Judgment: limited Objective Last Vital Signs Temp 96.6 F L 09/24/21 08:32 Pulse 88 09/24/21 08:32 Resp 22 09/24/21 08:32 BP 110/76 09/24/21 08:32 Pulse Ox 95 09/24/21 08:32 Objective Narrative Objective Narrative: pt sitting in recliner at time of visit; intermittent anxiety and crying regarding fear of and dying, wanting Reena to be present; pt cooperative and appreciative of hospital staff and hospice team
[2021-09-24] MEDS: Ondansetron O.D.T. 4 MG TABEF PO (16:10)
[2021-09-25] MEDS: LORazepam 1 MG TAB PO ×4 (05:46→22:12)
[2021-09-25] MEDS: Senna TAB 1 TAB PO (08:11)
[2021-09-25] MEDS: Furosemide 40 MG TAB PO (08:11)
[2021-09-25] MEDS: Spironolactone 50 MG TAB 100 MG PO (08:11)
[2021-09-25] MEDS: Lactulose 20 GM/30 ML CUP PO (08:11)
[2021-09-25] MEDS: Promethazine 25 MG SUPP PR (12:22)
[2021-09-25] MEDS: Scopolamine 1 MG/3 DAYS PATCH TD (12:52)
--- NOTE | 2021-09-25 13:52 | PGE_ITS ---
Date of Service Date of service: 09/25/21 Time of Service: 13:00 Assessment and Plan Assessment and plan (1) Hospice care patient: Status: Acute Assessment and plan: hospitalized for symptom management; pt and express only wanting to take medicines for comfort, no more PO; will leave all meds active at this time for reassessment tomorrow once pain and anxiety are controlled switched to hydromorphone cad pump; 0.4mg/hr w/0.2mg bolus (2) Hepatic encephalopathy: Status: Acute Assessment and plan: second admission in around 2 wks for hospice symptom management w/hepatic encephalopathy as primary sxs to be controlled, pt able to take lactulose this morning diluted w/OJ, continues w/no BM since admission; enema ordered now and qday moving forward - assess discontinuation of lactulose once pain and anxiety controlled (3) Cancer, hepatocellular: Status: Acute Assessment and plan: Dx [facility] w/liver biopsy, pt opted for no treatment; on hospice Dr Holloway unable to image his liver edge with her ultrasound, c/w his having a shrunken, small, cirrhotic liver. (4) Malignant ascites: Status: Acute Assessment and plan: Dr. Holloway following, approx 2 L of fluid removed prior to admission; next paracentesis 2-3wks (5) Decreased activities of daily living (ADL): Status: Acute Assessment and plan: has HH and family caregivers at home; has all equipment minus WC which has been ordered rapid decline, r/t HCC, weakness and sedentary lifestyle/obesity (6) Medication nonadherence due to intolerance: Status: Acute Assessment and plan: pt continues to struggle w/lactulose adherence 2/2 taste and stomach discomfort; (7) Alcohol use disorder: Status: Inactive Assessment and plan: continues to engage in AA, got 18 mo medallion this week; plan to continue AA engagement, sponsor and groups to come to him moving forward (8) Nausea & vomiting: Status: Acute Assessment and plan: increase promethazine AR to q4h PRN, scopolamine patch in place PO zofran at tolerated controlled at this time (9) Anticipatory anxiety: Status: Acute Assessment and plan: continues to express fear of dying; Chaplain Al visiting at time of visit lorazepam switched to IM 1-2mg q2h (10) Obstructive sleep apnea: Status: Chronic Assessment and plan: unable to wear CPAP d/t pressure creating pain in remaining teeth and causing sore; he does not have to wear CPAP at this time, may use nasal cannula PRN Subjective Subjective Interval history since last seen: Patient w/increased discomfort overnight, w/increased sense of dying, moaning, groaning and restlessness; called and requested she sit at bedside; pt has continued to not want to take lactulose, took dose this morning mixed w/OJ gwendolyn ropriately; pt has not had BM since admission, has urge to move bowels but when put on bed sunshine is unable to go, trial suppository w/no effect; pt w/N/V, promethazine suppository around noon w/appropriate effect; at time of visit pt request no medications other than meds for comfort (pain, agitation, confusion), would prefer to go home at this time; preference for no PO meds; morphine dose in previous 24H: 60mg; fentanyl patch 100mcg/hr placed on 09/[address]; lorazepam dose in previous 24H 8mg Exam Narrative Exam Narrative: pt laying in bed, eyes closed, able to answer close ended questions Const General: disheveled and ill appearing Nutritional Appearance: obese Orientation: alert, oriented to person, oriented to place and confused HENMT Head: normocephalic and atraumatic Ears: hearing grossly normal bilaterally General nose exam: external nose normal and no nasal discharge Face and sinus: normal facial exam, face symmetric and dry mucous membranes Mouth: lip abnormal, malodorous breath and mouth trauma Teeth and gingiva: edentulous and poor dentition (2 remaining teeth) Eyes General: appearance normal, both eyes and all related structures Sclera: sclerae normal Neck Neck: no JVD Resp Effort & Inspection: normal respiratory effort and labored Auscultation: other (anterior BS CLA;) Cardio Rate: tachycardic (100bpm) Rhythm: regular rhythm Heart Sounds: S1 normal and S2 normal GI Inspection: large pannus and obesity Palpation: firm, no guarding, splenomegaly, tender and ascites Auscultation: normal bowel sounds Skin General skin exam: no rashes or lesions noted Other: not jaundiced Neuro General: patient alert and oriented Cognition: normal cognition Speech: abnormal speech garbled (able to understand 90%) Extrem General: no calf tenderness and edema Laterality: bilateral Psych Mood: anxious mood (wants to go home) Affect: anxious affect Attitude: cooperative Thought Process: impoverished and perseverating Insight: limited Judgment: limited Objective Last Vital Signs Temp 96.6 F L 09/24/21 08:32 Pulse 88 09/24/21 08:32 Resp 22 09/24/21 08:32 BP 110/76 09/24/21 08:32 Pulse Ox 95 09/24/21 08:32
[2021-09-25] MEDS: HYDROmorphone 200 MG in CADD PUMP CASSETTE 1 EACH, Normal Saline 80 ML SC INF (14:28)
[2021-09-25] MEDS: Bisacodyl 10 MG SUPP PR (16:54)
[2021-09-25 20:28] VITALS: PULSE 96; RESP 14
--- NOTE | 2021-09-25 20:57 | NUR.NOTE ---
This journalists and other writers removed the 100mcg Fentanyl patch from the left side of abdomen. DYLAN Maxwell was notified and witnessed removal and proper disposal of said patch
[2021-09-25] MEDS: rOPINIRole 0.5 MG TAB 1.5 MG PO (22:14)
[2021-09-25 23:34] VITALS: BP 145/109; PULSE 109; RESP 26; TEMP 36.3; O2SAT 95
[2021-09-26] MEDS: Scopolamine 1 MG/3 DAYS PATCH TD (06:06)
[2021-09-26] MEDS: LORazepam 2 MG/ML VIAL IM ×7 (07:27→23:18)
--- NOTE | 2021-09-26 07:43 | PGE_ITS ---
Date of Service Date of service: 09/26/21 Time of Service: 07:43 Assessment and Plan Assessment and plan (1) Pain: Status: Acute Assessment and plan: I have increased his pump to 1 mg of Dilaudid basal rate per hour. I do think it will need to be increased a few more times in order to get him comfortable. Part of his reluctance to claim pain is that he wants to go home. But looking at him and watching him from the hallway?very uncomfortable. Will increase his bolus rate to 50% of his basal rate. (2) Malignant ascites: Status: Acute Assessment and plan: He does have some ascites but not overwhelming (3) Cirrhosis: Status: Acute Qualifiers: Hepatic cirrhosis type: unspecified hepatic cirrhosis Ascites presence: unspecified Qualified Code(s): K74.60 - Unspecified cirrhosis of liver (4) Cancer, hepatocellular: Status: Acute Assessment and plan: Contributing to his mental status changes. Also contributing to his constipation as well as the medications used to help to treat his pain. (5) Anticipatory anxiety: Status: Acute Assessment and plan: Continue with the lorazepam IM on a regular basis. He can have 1 to 2 mg every 2 hours. I have spoken with Michael to make sure that his anxiety is under good control. I will come back this evening and speak with his . If possible we will get him home, but he is not going to do well at home with how he is at this point. I cautioned him about pulling back on pain medication as well as need to have a bowel movement to help him with comfort. His could not handle him after he returned home from the hospital 2 weeks ago. Subjective Subjective Interval history since last seen: Darryl states that he wants to go home. Staff has said that he is unwilling to take more lactulose. He has not had a bowel movement since he is coming to [facility] this admission. Staff feels that his lack of bowel movement may be contributing to his overall discomfort. Exam Narrative Exam Narrative: Darryl is lying in bed. He has a very furloughed brow. He is speaking in 2-3 word sentences. His heart is regular. He is tachycardic. Lungs very little air movement with very shallow breathing. Abdomen some scattered bowel sounds but definitely diminished. He looks anxious and in pain Objective Last Vital Signs Temp 97.3 F L 09/25/21 23:34 Pulse 109 H 09/25/21 23:34 Resp 26 H 09/25/21 23:34 BP 145/109 H 09/25/21 23:34 Pulse Ox 95 09/25/21 23:34
[2021-09-26] MEDS: Nicotine 7 MG/24 HR PATCH TD (08:52)
--- NOTE | 2021-09-26 11:01 | NUR.NOTE ---
Nursing Note: Patient is very anxious. Basal rate was increased to 1 mg at 730, 1.2 at 1030. He has been given ativan twice. I have asked provider to decrease the time frame on the ativan to q 1hr. awaiting order
--- NOTE | 2021-09-26 11:01 | PDOC.CMPRO ---
- If Service Date Differs Date of service: 09/26/21 Time of Service: 11:01 Care Management Progress Note S/O: Darryl was lying in bed, resting when CM met with him. His , Reena, was by his side, knitting. She stated that he has had a lot of medication changes and she is concerned about him remaining comfortable. She does not feel safe bringing him home until he is more stable. His RN increased his morphine while CM was in the room. Reena talked about her family support, which she is leaning on during this difficult time. She stated that she is meeting with Yessi today to discuss final arrangements for Darryl. CM offered refreshments, which she stated that someone else had already asked, and they were bringing some to the room. CM will continue to follow. A: Darryl is a 50 year old male admitted to [facility] on 09/23/21 for hospice symptom management, HCC, Hepatic encephalopathy, AMS. P: Darryl will likely return home once his symptoms are managed. He has support from Hospice and a supportive family as well. He will likely transport via EMS. He will resume support from Hospice at home, and follow his discharge plan of care.
--- NOTE | 2021-09-26 13:38 | CHAPLAIN ---
I spent some time with Darryl and Reena this afternoon. Darryl was sleeping. I offered a prayer with Darryl and Reena. Reena has said that she has told Darryl that she will be well supported by family and that he does not need to worry about her or be scared for her. Reena reports that Darryl has spoken with his mom a couple of times, and Reena said she felt his mom's presence as well. Reena is grateful that Darryl has a sense that his mom will help him cross over. Over all, Reena said, I'm doing okay. I know I will crash later. Right now the dam is holding up. There have been a few fissures, but I've put duct tape on them for now. She has a meeting with the social services director at 6:30 pm so I told her I would come back about 6:15 to be with Darryl while she is out. She plans to get her CPap and return for the night. Darryl's sister wants to visit, but will not come to the hospital, so plans to visit Darryl at home. I worry that Darryl may not get home and asked Reena if there is anyway the sister could come here, in case Darryl is not able to communicate when he is home. Reena said Darryl will still know the sister is there even if he can't communicate. He communicates infrequently now, sometime he speaks when he sort of wakes up, Reena said. I worry that Reena also believes that Darryl will make it home and this is likely not the case. Reena seems to be very realistic about know that Darryl is dying, but nursing staff does not believe he will get home. Dr. Thomas is scheduled to visit Renea and Darryl today at 3:30 p.m.
[2021-09-27] MEDS: LORazepam 2 MG/ML VIAL IM ×6 (03:33→18:58)
[2021-09-27] MEDS: Nicotine 7 MG/24 HR PATCH TD (08:53)
--- NOTE | 2021-09-27 10:42 | CMPROGNOTE_ITS ---
- If Service Date Differs Date of service: 09/27/21 Time of Service: 10:42 Care Management Progress Note S/O: Darryl was resting comfortably in bed when CM met with him. His mother in law was in the room, and stated that Reena went home to rest for a while. Per report, he has required a total of 14 boluses over the last 24 hours, specifically when he is being repositioned. The hospice provider is increasing his dilaudid from 2.6mg/hr to 2.8 mg/hr. Reena's mother spoke of Reena's family support, and they are all expecting to be present for Reena when Darryl passes, as she has been holding herself together through Darryl's decline and hospitalizations. She stated that Reena has told Darryl that she will be ok. Reena met with [facility] yesterday to make final arrangements. will continue to support Darryl and his family during this difficult time. A: Darryl is a 50 year old male admitted to [facility] on 09/23/21 for hospice symptom management, HCC, Hepatic encephalopathy, AMS. P: Darryl will likely return home once his symptoms are managed. He has support from Hospice and a supportive family as well. He will likely transport via EMS. He will resume support from Hospice at home, and follow his discharge plan of care.
--- NOTE | 2021-09-27 10:50 | NUR.NOTE ---
Nursing Note: 1030: in with patient's primary RN to assess pump settings. pt is comfort measures at this time. pt currently receiving continuous hydromorphone at 2.6mg/hr with an available bolus dose of 1.3mg q 15 minutes at the moderate dosing level per the [employer]/SQ pump with a 2mg/mL concentration. the current pump limit/lock out setting is 20mg/hr will not allow for a current dosing of 31.2mg/hr if patient was to receive boluses q15 minutes. reviewed the high dose setting on the pump which does not include the current hydromorphone concentration, only 10 mg/hr. called pharmacy and spoke with Prisca Araya regarding pump settings; at this time, continue to monitor hydromorphone cassette volume currently at 64.5 mL and make adjustments as necessary to keep patient comfortable. If patient exceeds 4 hour limit, new cassette with higher concentration to be considered. continue to monitor to ensure patient is comfortable.
--- NOTE | 2021-09-27 13:53 | W.PM.PROGNOT ---
Date of Service Date of service: 09/27/21 Time of Service: 13:56 Assessment and Plan Assessment and plan (1) Cancer, hepatocellular: Status: Acute (2) Cirrhosis: Status: Acute Qualifiers: Hepatic cirrhosis type: unspecified hepatic cirrhosis Ascites presence: unspecified Qualified Code(s): K74.60 - Unspecified cirrhosis of liver (3) Malignant ascites: Status: Acute (4) Hepatic encephalopathy: Status: Acute (5) Pain: Status: Acute (6) History of ETOH abuse: (7) Anxiety: Status: Chronic (8) Hospice care patient: Status: Acute Assessment and plan: Darryl is on hospice symptom management. He is on a hydromorphone drip at 3.3 mg/hr. He was increased to the high concentration today. He is also receiving lorazepam PRN for restlessness. Continue to increase hydromorphone every hour until he appears comfortable. Family present. His life expectancy is measured in hours to days. Subjective Subjective Interval history since last seen: Darryl remains on hospice symptom management. He was seen twice this afternoon. His significant other, Reena, was present for the visit this afternoon and her mother was present for the visit prior. By the second visit, his basal rate had been increased from 2.6 (earlier) to 3.3. He received several boluses over the last 24 hours prior to position changes and PRN. His rate has been adjusted appropriately. He has been increased to the high concentration of the hydromorphone. Darryl is also receiving lorazepam PRN for restlessness. He has a omlstead in place. He is still producing urine. Exam Narrative Exam Narrative: General: middle aged man, laying in bed with furrowed brows at first visit, appeared more relaxed at second visit. He is unresponsive. HEENT: normocephalic, atraumatic, eyes closed, mucous membranes dry. Neck: supple, no JVD. Cardiovascular: heart sounds regular, tachycardic. Respiratory: respirations appear unlabored. Lungs sound clear on limited anterior and lateral exam. GI: Large, round abdomen, softly distended. Extremities: +pedal edema. Objective Last Vital Signs Temp 36.3 C L 09/25/21 23:34 Pulse 109 H 09/25/21 23:34 Resp 26 H 09/25/21 23:34 BP 145/109 H 09/25/21 23:34 Pulse Ox 95 03/27/22 23:34
--- NOTE | 2021-09-27 14:41 | NUR.NOTE ---
Nursing Note: Spoke to hodan diaz BUTTON TUFTING MACHINE OPERATOR I explained to her the current dose of dilaudid was nearing the 4 hour limit, and nursing had concern that the 4 hour lockout would soon be exceeded. She reviewed orders. Awaiting new orders.
--- NOTE | 2021-09-27 17:07 | CHAPLAIN ---
I have visited with Darryl a few times today. Reena went home this morning and took a much needed break until early afternoon. She said she realizes now that Darryl won't be going home. That is a difficult to admit she said, but she knows he can be kept comfortable here. Several family members visited last night, and some have come today. Darryl response slight when someone talks directly to him. He opens his eyes briefly, sometimes saying a couple of words. VIC Rodriguez, has been Darryl's nurse for a couple of days, and now will be off for a few days. Reena has a lot of confidence in Michael controlling Darryl's pain, and is hoping the nurses over the next few days will be as good. Last night was difficult, Reena said, as she believed his nurse didn't stay ahead of Darryl's pain. Reena has a great deal of family support and has said she will be fine until Darryl dies, and will likely then fall apart.
[2021-09-27 17:10] VITALS: PULSE 88; RESP 12
[2021-09-27 19:17] VITALS: PULSE 92; RESP 12
[2021-09-27 23:14] VITALS: PULSE 90; RESP 11
[2021-09-28] MEDS: Glycopyrrolate 1 MG TAB PO (02:30)
[2021-09-28] MEDS: Hyoscyamine 0.125 MG SL/ORAL/CHEW SL (04:47)
[2021-09-28] MEDS: LORazepam 2 MG/ML VIAL IM ×4 (07:46→21:54)
[2021-09-28] MEDS: Glycopyrrolate 0.2 MG/1 ML VIAL IM ×4 (10:30→21:08)
--- NOTE | 2021-09-28 11:44 | W.PM.PROGNOT ---
Date of Service Date of service: 09/28/21 Time of Service: 11:45 Assessment and Plan Assessment and plan (1) Cancer, hepatocellular: Status: Acute (2) Cirrhosis: Status: Acute Qualifiers: Hepatic cirrhosis type: unspecified hepatic cirrhosis Ascites presence: unspecified Qualified Code(s): K74.60 - Unspecified cirrhosis of liver (3) Malignant ascites: Status: Acute (4) Hepatic encephalopathy: Status: Acute (5) Pain: Status: Acute (6) History of ETOH abuse: (7) Anxiety: Status: Chronic (8) Hospice care patient: Status: Acute Assessment and plan: Darryl is on hospice symptom management. He is on a hydromorphone drip at 4.8 mg/hr. He was increased to the high concentration yesterday. He is also receiving lorazepam PRN. He appears comfortable. Nursing is encouraged to adjust the basal rate as needed to keep him comfortable. His family is encouraged to report signs of discomfort or distress. His family feels he is more comfortable now. His life expectancy is measured in hours to days. Subjective Subjective Interval history since last seen: Darryl remains on hospice symptom management. He is actively dying. He is on a hydromorphone pump at 4.8 mg/hr. He has not required any PRN boluses since the rate was increased a couple of hours ago. He is receiving a bolus prior to care/repositioning. He is also getting PRN lorazepam. He appears to be more comfortable. He has a catheter in place, he is putting out dark fredo urine. Reena and her mom are present and have been staying with him constantly. Exam Narrative Exam Narrative: General: middle aged man, laying in bed, he appears comfortable. He is unresponsive. HEENT: normocephalic, atraumatic, eyes closed, mucous membranes dry. Neck: supple, no JVD. Cardiovascular: heart sounds regular, tachycardic. Respiratory: respirations appear irregular but unlabored. GI: Large, round abdomen, softly distended. Extremities: +pedal edema. Extremities are warm. Objective Last Vital Signs Temp 36.3 C L 09/25/21 23:34 Pulse 90 09/27/21 23:14 Resp 11 L 09/27/21 23:14 BP 145/109 H 09/25/21 23:34 Pulse Ox 95 09/25/21 23:34
[2021-09-28] MEDS: Scopolamine 1 MG/3 DAYS PATCH TD (11:58)
--- NOTE | 2021-09-28 14:59 | CHAPLAIN ---
I've visited Darryl a few times today. Reena and her mom, Kari, were with Darryl this morning. Reena has gone home to rest this afternoon and Kari is staying with Darryl. Darryl has been mildly responsive for the past few days. All the relatives who were expected to visit Darryl, have been here, including his sister who had not seen him for a while. Reena has done well assuring Darryl that she will be well supported by her family after he dies. When Darryl was talking, he stated that leaving Reena was his biggest worry. He is seen daily by Hospice for symptom management.
--- NOTE | 2021-09-28 15:52 | CMPROGNOTE_ITS ---
- If Service Date Differs Date of service: 09/28/21 Time of Service: 15:52 Care Management Progress Note S/O: Darryl was resting comfortably when CM met with him. His and mother in law were both in the room visiting. Reena has been making progress on a blanket she is knitting, which has been keeping her hands busy while she stays by Darryl's side. Her mother, Kari, has been supporting Reena, and staying with Darryl while Reena goes home to shower and regroup. There are refreshments in the room, and they are watching old favorite movies. Darryl's hydromorphine drip was increased today to 4.8mg/hr, and per RN, he has been more comfortable today. Per report, his life expectancy is measured in hours to days. CM will continue to support Darryl and his family during this difficult time. A: Darryl is a 50 year old male admitted to [facility] on 09/23/21 for hospice symptom management, HCC, Hepatic encephalopathy, AMS. P: Darryl will remain at [facility] for his end of life care. His , Reena has been by his side consistently. Other family members have been taking turns visiting as well. His final arrangements have been made with [facility]. CM will continue to support Darryl and his family during this difficult time.
[2021-09-28 19:44] VITALS: RESP 16
[2021-09-28 21:10] VITALS: PULSE 115; RESP 16
[2021-09-28] MEDS: Promethazine 25 MG SUPP PR (21:58)
--- NOTE | 2021-09-29 08:15 | W.PM.DDS ---
Date of service: 09/28/21 Time of Service: 22:16 Discharge Sum: Prov Provider Consults: 09/23/21 14:06 Keyboarding Teacher Consult [CONS] Routine Consultation Status:: Follow-up needed Clarification:: Manage/follow per spec. Reason for consult:: strong fear of Discharge Sum: Diag Contributing Factors (1) Cancer, hepatocellular: (2) Cirrhosis: (3) Malignant ascites: (4) Hepatic encephalopathy: (5) Pain: (6) History of ETOH abuse: (7) Anxiety: (8) Hospice care patient:
--- NOTE | 2021-09-29 14:48 | CHAPLAIN ---
I received a call about 10:30 p.m. last night (09/28) from Med/Surg letting me know that Darryl had . When I came in, Reena, Darryl's , and her mom Kari, were here. Darryl's wasn't unexpected as he had been less responsive the past couple of days. Many family members had been in to visit Darryl during the past week or so, including his sister. Reena had said it was important to Darryl that that his sister, Blank, visit as they had been somewhat estranged since their mom in . When I asked if Reena wanted me to offer a prayer with Darryl, she said she had already done that. She called a few family members and then we talked about Darryl and his life with Reena. Reena and Kari stayed for another hour or so. Reena had previously met with Harish from [facility], so plans for Darryl's cremation had already been made. Reena plans to have a family celebration on November 27, a date that Darryl picked a while ago.
== END 2021-09-28 22:15 | disposition expired | DRG 442 ==
PROVIDERS: Admitting Provider Family Medicine; PCP Nurse Practitioner Family; Visit Provider Family Medicine
DX: K72.90 Hepatic failure, unspecified without coma (principal); R18.0 Malignant ascites; C22.0 Liver cell carcinoma; K76.6 Portal hypertension; I85.10 Secondary esophageal varices without bleeding; Z51.5 Encounter for palliative care; K74.60 Unspecified cirrhosis of liver; F41.9 Anxiety disorder, unspecified; G47.33 Obstructive sleep apnea (adult) (pediatric); K76.0 Fatty (change of) liver, not elsewhere classified; E11.628 Type 2 diabetes mellitus with other skin complications; K59.00 Constipation, unspecified; R53.1 Weakness; R11.2 Nausea with vomiting, unspecified; F17.210 Nicotine dependence, cigarettes, uncomplicated; G25.81 Restless legs syndrome; F32.9 Major depressive disorder, single episode, unspecified; N40.0 Benign prostatic hyperplasia without lower urinary tract symptoms; K21.9 Gastro-esophageal reflux disease without esophagitis; E78.5 Hyperlipidemia, unspecified; Z79.891 Long term (current) use of opiate analgesic; E66.01 Morbid (severe) obesity due to excess calories; G89.3 Neoplasm related pain (acute) (chronic)
CPT/HCPCS: J1170; J2060; J3490